=== PATIENT | female | born 1980 | race Caucasian/White ===

== ENCOUNTER → 2017-04-16 | Outpatient (CLI) | payer MEDICARE, MEDICAID ==
[~2017-04-16] MED LIST: ACYC800T PO; ALPR.5T; ARPZ20T PO; CRS350T; CYCL10TA9 PO; DCS100C; DIAZ5TAB49; DOCU-165; DULO60CA6; FLUO40CA12 PO; HYDR-2997 PO; HYDR-32; HYDR-3604; LAMO100T69; LORA2TAB; NAPR500T4 PO; PREN1TAB71; TRAM-21 PO; TRAM-42 PO; TRAM50TA2
--- NOTE | 2017-04-16 17:58 | Diagnostic Imaging Report ---
INDICATION: Pain. Three views were obtained. FINDINGS: The alignment is normal. The plafonds and talar dome are intact. The ankle mortise is symmetric. There is no fracture or dislocation. IMPRESSION: No acute fracture or dislocation. Dictated by: Dictated on workstation # [id number]
== END ==
LOC: RAD 17:18
DX: M25.572 Pain in left ankle and joints of left foot (principal)
CPT/HCPCS: 73610

== ENCOUNTER 2017-08-28 23:26 | Emergency (ER) | payer MEDICARE, MEDICAID ==
[~2017-08-28] VITALS: Ht 162.6 cm; Wt 63.5 kg
[~2017-08-28 23:26] MED LIST changes: -FLUO40CA12 PO; -NAPR500T4 PO; -TRAM-42 PO
[2017-08-28] MEDS ORDERED: FLUO40CA12 PO (23:57)
[2017-08-29] MEDS ORDERED: RX-NAPROXEN (NAPROSYN) 250 MG TAB PPK#4 PO STA (00:26)
[2017-08-29] MEDS ORDERED: RX-TRAMADOL 50 MG (ULTRAM) TAB PPK#4 PO STA (00:26)
[2017-08-29] MEDS ORDERED: TRAM-42 PO (00:30)
[2017-08-29] MEDS ORDERED: NAPR500T4 PO (00:30)
--- NOTE | 2017-08-29 00:30 | ED Lower Extremity ---
General Chief Complaint: Lower Extremity Stated Complaint: LT ANKLE INJ Nursing Triage Note: LEFT ANKLE PAIN AFTER MISSING STEP. Nursing Sepsis Screen: No Definite Risk Source: patient History of Present Illness Time seen by provider: 23:55 Initial Comments PT ARRIVES VIA POV C/O LEFT ANKLE INJURY STATES SHE WAS AT A FRIEND'S HOUSE AND MISSED THE LAST STEP AND TWISTED HER LEFT ANKLE OCCURRED APPROXIMATELY AN HOUR AGO NO OTHER INJURIES NO PARESTHESIAS OR MOTOR DEFICITS HAS HAD SPRAIN TO THIS ANKLE IN THE PAST, NO SURGERY PCP:[facility] [place] Allergies and Home Medications Allergies Coded Allergies: NKANo Known Allergies (Unverified Allergy, Mild, 03/20/06) ketorolac (Verified Allergy, Unknown, SWELLING OF THE TOUNGE. , 01/30/16) Home Medications Alprazolam 0.5 Mg Tablet, (Reported) Fluoxetine HCl 40 Mg Capsule, 40 MG PO, (Reported) Lamotrigine 100 Mg Tablet, (Reported) Naproxen 500 Mg Tablet, 500 MG PO BID, #20 Prescribed by: RELL ZEPEDA on 08/29/17 0030 Tramadol HCl 50 Mg Tablet, 50 MG PO Q4H, #20 Prescribed by: RELL ZEPEDA on 08/29/17 0030 Constitutional: no symptoms reported : No LMP: Aug 21, 2017 Control/STD Prophylaxis: IUD Musculoskeletal: see HPI Skin: no symptoms reported Psychiatric/Neurological: No Symptoms Reported Past Hdrgsmp-Zgufqr-Otwfaz Hx Patient Social History Alcohol Use: Occasionally Uses Alcohol Beverage of Choice: Beer Recreational Drug Use: Yes (+IV METH USE ) Smoking Status: Current Everyday Smoker (1 PPD) Type Used: Cigarettes 2nd Hand Smoke Exposure: Yes Recent Foreign Travel: No Contact w/Someone Who Travel: No Recent Infectious Disease Expo: No Recent Hopitalizations: No Immunizations Up To Date Tetanus Booster (TDap): Unknown Seasonal Allergies Seasonal Allergies: No Surgeries History of Surgeries: Yes (URETHRAL DILATION X 2; X 2) Surgeries: Adenoidectomy, Bladder Surgery, Section, Tonsillectomy Respiratory History of Respiratory Disorde: Yes Respiratory Disorders: Asthma Cardiovascular History of Cardiac Disorders: No Neurological History of Neurological Disord: No 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 System : No Hx 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 Disorders: No Female 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 Genitourinary History of Genitourinary Disor: No Gastrointestinal History of Gastrointestinal Di: No Musculoskeletal History of Musculoskeletal Dis: Yes (CHRONIC NECK PAIN ) Musculoskeletal Disorders: Degenerate Disk Disease Endocrine History of Endocrine Disorders: No HEENT History of HEENT Disorders: No Cancer History of Cancer: No Psychosocial History of Psychiatric Problem: Yes Behavioral Health Disorders: Anxiety, Bipolar, Schizophrenia, Depression Integumentary History of Skin or Integumenta: No Blood Transfusions History of Blood Disorders: No Physical Exam Vital Signs Vital Sign - Last 12Hours 08/28/17 23:57 Temp 98.6 Pulse 103 Resp 18 B/P (MAP) 120/73 Pulse Ox 96 O2 Delivery Room Air Capillary Refill : Less Than 3 Seconds General Appearance: WD/WN, no apparent distress, other (PT WITH RAPID MUMBLED AND SLIGHTLY SLURRED SPEECH, APPEARS TO BE UNDER THE INFLUENCE OF SOME SUBSTANCE /S) Legs: bilateral leg normal inspection Knees: bilateral knee normal inspection Ankles: right ankle normal inspection, left ankle bone tenderness, left ankle limited range of motion, left ankle pain, left ankle soft tissue tenderness, left ankle swelling, left ankle other (OVER LATERAL ASPECT OF LEFT ANKLE) Feet: left foot normal inspection Neurologic/Tendon: normal sensation, normal motor functions, normal tendon functions 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, no motor/sensory deficits, alert, oriented x 3 Skin: normal color, warm/dry Splinting and Joint Reduction : Edgard wrap: Yes Immobilizers: Step Light Walker s/m/lg Progress/Results/Core Measures Results/Orders My Orders Orders - RELL ZEPEDA DO Ankle, Left, 3 Views (08/29/17 00:01) Edgard Bandage (08/29/17 00:26) Steplite (08/29/17 00:26) Rx-Tramadol Hcl (Rx-Ultram) (08/29/17 00:26) Rx-Naproxen (Rx-Naprosyn) (08/29/17 00:26) Vital Signs/I&O Vital Sign - Last 12Hours 08/28/17 08/29/17 23:57 00:38 Temp 98.6 98.6 Pulse 103 103 Resp 18 18 B/P (MAP) 120/73 Pulse Ox 96 96 O2 Delivery Room Air Blood Pressure Mean: 89 Diagnostic Imaging Comments XRAYS LEFT ANKLE--NO ACUTE PROCESS, PENDING RADIOLOGIST REVIEW Reviewed: Reviewed by Me Departure Impression Impression: Primary Impression: Left ankle sprain Disposition: 01 HOME, SELF-CARE Condition: Stable Departure-Patient Inst. Referrals: NO,LOCAL PHYSICIAN (PCP/Family) Primary Care Physician Patient Instructions: Ankle Sprain (DC), How to Use an Elastic Bandage Add. Discharge Instructions: EDGARD WRAP AND WALKING BOOT NEEDED FOR COMFORT ICE TO AREA AT 20 MINUTE INTERVALS ELEVATE FOOT MUCH POSSIBLE FOLLOW UP WITH YOUR DR IN 1 WEEK IF NO BETTER All discharge instructions reviewed with patient and/or family. Voiced understanding. Scripts Tramadol HCl (Ultram) 50 Mg Tablet 50 MG PO Q4H, #20 TAB Prov: RELL ZEPEDA DO 08/29/17 Naproxen (Naproxen) 500 Mg Tablet 500 MG PO BID, #20 TAB Prov: RELL ZEPEDA DO 08/29/17 RELL ZEPEDA DO Aug 29, 2017 00:30
[2017-08-29 00:38] VITALS: BP 120/73
--- NOTE | 2017-08-29 07:20 | Diagnostic Imaging Report ---
INDICATION: Injury. Pain. COMPARISON: 04/16/2017 FINDINGS: 3 views of the left ankle are obtained. No acute fracture, malalignment or osseous destructive process is seen. Osseous density distal to the medial malleolus is unchanged and likely chronic. There is moderate soft tissue swelling laterally. Ankle joint space is preserved. IMPRESSION: There is moderate lateral soft tissue swelling without evidence of an acute fracture. Dictated by: Dictated on workstation # [id number]
== END 2017-08-29 00:38 | disposition home or self-care (01) ==
LOC: EDUNIT# 23:26 → ER 23:28
DX: S93.402A Sprain of unspecified ligament of left ankle, initial encounter (principal); F15.10 Other stimulant abuse, uncomplicated; F12.10 Cannabis abuse, uncomplicated; J45.909 Unspecified asthma, uncomplicated; F41.9 Anxiety disorder, unspecified; F31.9 Bipolar disorder, unspecified; F20.9 Schizophrenia, unspecified; Z87.59 Personal history of other complications of pregnancy, childbirth and the puerperium; Z90.89 Acquired absence of other organs; X50.1XXA Overexertion from prolonged static or awkward postures, initial encounter
CPT/HCPCS: 73610; 99283

== ENCOUNTER 2019-03-02 19:40 | Emergency (ER) | payer MEDICARE, MEDICAID ==
[~2019-03-02] VITALS: Ht 157.5 cm; Wt 72.6 kg
[~2019-03-02 19:40] MED LIST changes: +FLUO40CA12 PO; +NAPR-915 PO; +TRAM-42 PO
[2019-03-02 19:48] VITALS: BP 117/80
--- NOTE | 2019-03-02 19:48 | ED Lower Extremity ---
General Stated Complaint: L KNEE PAIN Source: patient, EMS Exam Limitations: no limitations History of Present Illness Date Seen by Provider: March 02, 2019 Time Seen by Provider: 19:46 Initial Comments To ER with left knee and left ankle pain. This occurred just prior to arrival when she was running from the police wearing flip-flops, slipped and fell and h as knee pain. She has been able to walk and bear weight but she states that she has been with a limp. Onset: just prior to arrival Severity: moderate Pain/Injury Location: left knee Method of Injury: fell Modifying Factors: Worse With Movement Allergies and Home Medications Allergies Coded Allergies: NKANo Known Allergies (Unverified Allergy, Mild, 03/20/06) aripiprazole (Verified Allergy, Unknown, 03/02/19) ketorolac (Verified Allergy, Unknown, SWELLING OF THE TOUNGE. , 01/30/16) Patient Home Medication List Home Medication List Reviewed: Yes Review of Systems Constitutional: see HPI EENTM: see HPI Respiratory: no symptoms reported Cardiovascular: no symptoms reported Genitourinary: no symptoms reported Musculoskeletal: see HPI Skin: no symptoms reported Psychiatric/Neurological: No Symptoms Reported Past Gucdggf-Mgkucx-Ldwahz Hx Patient Social History Alcohol Beverage of Choice: Beer Type Used: Cigarettes 2nd Hand Smoke Exposure: Yes Recent Foreign Travel: No Contact w/Someone Who Travel: No Recent Hopitalizations: No Immunizations Up To Date Tetanus Booster (TDap): Unknown Seasonal Allergies Seasonal Allergies: No Past Medical History Surgeries: Yes (URETHRAL DILATION X 2; X 2) Adenoidectomy, Bladder Surgery, Section, Tonsillectomy Respiratory: Yes Asthma Cardiac: No Neurological: No 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 Disorders: No Female 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 oz. 63.006782zw; BMI Method:Estimated General Appearance: WD/WN, no apparent distress Respiratory: no respiratory distress, no accessory muscle use Hips: bilateral hip non-tender, bilateral hip normal inspection, bilateral hip normal range of motion Legs: bilateral leg non-tender, bilateral leg normal inspection, bilateral leg normal range of motion Knees: left knee pain, left knee soft tissue tenderness, left knee swelling Ankles: left ankle pain, left ankle soft tissue tenderness, left ankle swelling Feet: bilateral foot non-tender, bilateral foot normal inspection, bilateral foot normal range of motion Neurologic/Psychiatric: alert, normal mood/affect, oriented x 3 Skin: normal color, warm/dry Progress/Results/Core Measures Results/Orders My Orders Orders - REYNALDO GIL APRN Knee, Left, 3 Views (03/02/19 19:44) Ankle, Left, 3 Views (03/02/19 19:44) Vital Signs/I&O 03/02/19 19:48 Temp 97.1 Pulse 109 Resp 18 B/P (MAP) 117/80 (92) Pulse Ox 98 O2 Delivery Room Air Departure Communication (Admissions) 1954-shockingly, now that the police have released her from custody she states she like to sign out AGAINST MEDICAL ADVICE. Impression Primary Impression: Knee pain Qualified Codes: M25.562 - Pain in left knee Additional Impression: Under investigation by police Disposition: 07 AGAINST MEDICAL ADVICE Condition: Against Medical Advice Departure-Patient Inst. Referrals: NO,LOCAL PHYSICIAN (PCP/Family) Primary Care Physician REYNALDO GIL APRN March 02, 2019 19:47
== END 2019-03-02 19:58 | disposition left against medical advice (07) ==
LOC: EDUNIT# 19:40 → ER 19:42
DX: M25.562 Pain in left knee (principal); J45.909 Unspecified asthma, uncomplicated; F41.9 Anxiety disorder, unspecified; F31.9 Bipolar disorder, unspecified; F20.9 Schizophrenia, unspecified; Z97.5 Presence of (intrauterine) contraceptive device; Z88.8 Allergy status to other drugs, medicaments and biological substances; Z88.4 Allergy status to anesthetic agent; Z77.22 Contact with and (suspected) exposure to environmental tobacco smoke (acute) (chronic); Z98.890 Other specified postprocedural states; Z90.89 Acquired absence of other organs; Z65.3 Problems related to other legal circumstances; W01.0XXA Fall on same level from slipping, tripping and stumbling without subsequent striking against object, initial encounter
CPT/HCPCS: 99283

== ENCOUNTER → 2019-10-06 | Outpatient (CLI) | payer MEDICARE, MEDICAID ==
--- NOTE | 2019-10-06 14:09 | Diagnostic Imaging Report ---
INDICATION: patient, survey. TECHNIQUE: Multiple real-time grayscale images were obtained over the gravid uterus. COMPARISON: None during this . FINDINGS: A single live intrauterine fetus is seen measuring 33 weeks 2 days in size by composite measurements. The fetus is in cephalic presentation. Amniotic fluid index is 12.9 cm. The placenta is grade 1 and posterior. There is no evidence of previa. heart rate is 150 bpm. Maternal adnexa could not be visualized. survey demonstrates a normal appearance of the kidneys and bladder as well as the stomach and four-chamber heart view. Intracranial ventricles are normal in size. Three-vessel cord and cord insertion appear unremarkable. spine was not well seen due to position. Biometrical measurements are as follows: Biparietal 8.14 cm, age 32 weeks 5 days. Head circumference 30.24 cm, age 33 weeks 5 days. Abdominal circumference 30.55 cm, age 34 weeks 4 days. Femur length 6.15 cm, age 32 weeks 0 days. Sonographic estimate age: 33 weeks 2 days. Sonographic estimated date of delivery: 11/22/2019. Estimated Weight: 2213 gm (+/- 323 gm). LMP percentile: 96%. heart rate: 150 beats per minute. number: 1 of 1. IMPRESSION: Single live intrauterine fetus measuring 33 weeks 2 days in size. There was no detectable abnormality, although spine was not well seen. Consider follow-up if clinically warranted. Dictated by: Dictated on workstation # [id number]
== END ==
LOC: RAD 12:49
PROVIDERS: ATTEND Obstetrics & Gynecology
DX: Z36.89 Encounter for other specified antenatal screening (principal); Z3A.33 33 weeks gestation of pregnancy
CPT/HCPCS: 76805

== ENCOUNTER 2019-10-14 15:11 | Emergency (ER) | payer MEDICARE, MEDICAID ==
[~2019-10-14] VITALS: Ht 157.5 cm; Wt 85.7 kg
[2019-10-14 15:48] LABS: BILIRUBIN,URINE NEGATIVE (NEGATIVE); CLARITY,URINE CLOUDY; COLOR,URINE YELLOW; GLUCOSE, URINE (UA) NEGATIVE (NEGATIVE); KETONES,URINE NEGATIVE (NEGATIVE); LEUKOCYTE ESTERASE ,URINE NEGATIVE (NEGATIVE); NITRITE,URINE NEGATIVE (NEGATIVE); PH,URINE 6.5 (5-9); PROTEIN,URINE NEGATIVE (NEGATIVE)
--- NOTE | 2019-10-14 15:58 | ED General ---
General Chief Complaint: Lower Extremity Stated Complaint: SWOLLEN ANKLES/FEET, HEADACHE Nursing Triage Note: PT AMBULATE TO TRIAGE WITH C/O BILAT ANKLE SWELLING STARTING APPROX 3 DAYS AGO. PT REPORTS SHE IS AND HER DUE DATE IS 11/22/19. Nursing Sepsis Screen: No Definite Risk Source of Information: Patient Exam Limitations: No Limitations History of Present Illness Date Seen by Provider: Oct 14, 2019 Time Seen by Provider: 15:58 Initial Comments 39-year-old female patient presents with complaints of bilateral ankle swelling beginning 2-3 days ago. Patient does report being on her feet more the last couple of days. Swelling is worse in the evenings. Patient reports being seen by Dr. Omalley one to 2 weeks ago and is scheduled for follow-up on October 19. She does report a slight headache for 1-2 days. Denies dizziness, shortness of air, chest pain, palpitations. Timing/Duration: 2-3 Days Modifying Factors: worse with Other (swelling is worse in the evening) Allergies and Home Medications Allergies Coded Allergies: NKANo Known Allergies (Unverified Allergy, Mild, 03/20/06) aripiprazole (Verified Allergy, Unknown, 03/02/19) ketorolac (Verified Allergy, Unknown, SWELLING OF THE TOUNGE. , 01/30/16) Home Medications Vit W-Ca,Fe,FA(<1 mg) 1 Each Tablet, 1 EACH PO DAILY, (Reported) Patient Home Medication List Home Medication List Reviewed: Yes Review of Systems Review of Systems Constitutional: No chills, No diaphoresis, No dizziness, No fever, No malaise, No weakness EENTM: No ear pain, No blurred vision, No double vision, No eye pain, No vision loss, No hoarseness, No mouth pain, No nose congestion, No throat pain Respiratory: No cough, No dyspnea on exertion, No orthopnea, No phlegm, No short of breath, No wheezing Cardiovascular: No chest pain; edema; No palpitations, No syncope Gastrointestinal: No abdominal pain, No constipation, No diarrhea, No nausea, No vomiting Genitourinary: No decreased output, No discharge, No dysuria, No frequency, No hematuria, No pain, No other (denies vaginal bleeding) : Yes Expected Date of Delivery: Nov 22, 2019 Musculoskeletal: no symptoms reported Skin: no symptoms reported Psychiatric/Neurological: Headache; Denies Numbness, Denies Paresthesia, Denies Seizure, Denies Tingling, Denies Weakness Hematologic/Lymphatic: No Symptoms Reported All Other Systems Reviewed Negative Unless Noted: Yes (Negative excepted noted.) Past Mhlzcub-Cwzjge-Mltzpu Hx Past Med/Social Hx: Reviewed Nursing Past Med/Soc Hx, Reviewed and Corrections made Patient Social History Alcohol Use: Regular Use Number of Drinks Today: AA Alcohol Beverage of Choice: Beer Recreational Drug Use: No Smoking Status: Current Everyday Smoker Type Used: Cigarettes 2nd Hand Smoke Exposure: Yes Recent Foreign Travel: No Contact w/Someone Who Travel: No Recent Infectious Disease Expo: No Recent Hopitalizations: No Physical Abuse: No Sexual Abuse: No Mistreated: No Fear: No Immunizations Up To Date Tetanus Booster (TDap): Unknown Seasonal Allergies Seasonal Allergies: No Past Medical History Surgeries: Yes (URETHRAL DILATION X 2; X 2) Adenoidectomy, Bladder Surgery, Section, Tonsillectomy Respiratory: Yes Asthma Cardiac: No Neurological: No : Yes Expected Date of Delivery: Nov 22, 2019 Hx : 2 Hx Para: 1 Hx Total # of Abortions (Sp): 0 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 Disorders: No Female 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 FISH[employer] History: IUD Genitourinary: No Gastrointestinal: No Musculoskeletal: Yes (CHRONIC NECK PAIN ) Degenerate Disk Disease Endocrine: No HEENT: No Cancer: No Psychosocial: Yes Anxiety, Bipolar, Schizophrenia, Depression Integumentary: No Blood Disorders: No Family Medical History Reviewed Nursing Family Hx No Pertinent Family Hx Physical Exam Vital Signs Vital Signs - First Documented 10/14/19 10/14/19 15:23 17:19 Temp 37.1 Pulse 98 Resp 18 B/P (MAP) 115/69 (84) Pulse Ox 99 O2 Delivery Room Air Capillary Refill : Less Than 3 Seconds Height, Weight, BMI Height: 5'2.00" Weight: 160lbs. oz. 72.307577gj; 34.00 BMI Method:Stated General Appearance: No Apparent Distress, WD/WN HEENT: PERRL/EOMI, Pharynx Normal Neck: Normal Inspection, Supple Respiratory: Lungs Clear, Normal Breath Sounds, No Accessory Muscle Use, No Respiratory Distress Cardiovascular: Regular Rate, Rhythm, No Gallop, No JVD, No Murmur, Normal Peripheral Pulses Gastrointestinal: Normal Bowel Sounds, Non Tender, Soft; No Distended; Other (uteromegaly consistent with a 34 wk fundus) Back: Normal Inspection, No CVA Tenderness Extremity: Normal Capillary Refill, No Calf Tenderness, Pedal Edema (2+ pedal edema) Neurologic/Psychiatric: Alert, Oriented x3, Normal Mood/Affect Skin: Normal Color, Warm/Dry Progress/Results/Core Measures Suspected Sepsis Recent Fever Within 48 Hours: No Infection Criteria Present: None New/Unexplained Altered Menta: No Sepsis Screen: No Definite Risk SIRS Temperature: Pulse: 98 Respiratory Rate: 18 Blood Pressure 115 /69 Mean: 84 Results/Orders Lab Results Laboratory Tests Test 10/14/19 15:40 Range/Units Urine Color YELLOW Urine Clarity CLOUDY Urine pH 6.5 5-9 Urine Specific [place] 1.025 H 1.016-1.022 Urine Protein NEGATIVE NEGATIVE Urine Glucose (UA) NEGATIVE NEGATIVE Urine Ketones NEGATIVE NEGATIVE Urine Nitrite NEGATIVE NEGATIVE Urine Bilirubin NEGATIVE NEGATIVE Urine Urobilinogen 0.2 < = 1.0 MG/DL Urine Leukocyte Esterase NEGATIVE NEGATIVE Urine RBC (Auto) NEGATIVE NEGATIVE Urine RBC NONE /HPF Urine WBC 2-5 /HPF Urine Squamous Epithelial Cells 5-10 /HPF Urine Crystals NONE /LPF Urine Bacteria LARGE H /HPF Urine Casts NONE /LPF Urine Mucus NEGATIVE /LPF Urine Culture Indicated YES My Orders Orders - BRUCE HALEY Heart Tones (10/14/19 15:41) Ua Culture If Indicated (10/14/19 15:41) Urine Culture (10/14/19 15:40) Cephalexin Capsule (Keflex Capsule) (10/14/19 17:15) Vital Signs/I&O 10/14/19 10/14/19 15:23 17:19 Temp 37.1 Pulse 98 71 Resp 18 18 B/P (MAP) 115/69 (84) 122/68 Pulse Ox 99 O2 Delivery Room Air Room Air Capillary Refill : Less Than 3 Seconds Blood Pressure Mean: 84 Departure Communication (Admissions) Patient seen and evaluated. Urinalysis obtained. heart tones 163 bpm. patient case discussed with Dr. Omalley with recommendations for patient to go upstairs to women's services for monitoring. ua findings and recommendations by dr. omalley d/w the patient. patient verbalizes understanding and agrees with the treatment plan. patient case d/w dr. sanders, he agrees with the plan of care. Impression Primary Impression: UTI (urinary tract infection) in in third trimester Additional Impressions: Pedal edema 34 weeks gestation of Disposition: HOME, SELF-CARE Condition: Improved Departure-Patient Inst. Decision time for Depature: 17:01 Referrals: CLAIRE OMALLEY,LOCAL PHYSICIAN (PCP) Primary Care Physician Patient Instructions: Preeclampsia (DC), Pitfalls After Age 35, Urinary Tract Infection, Child (DC) Add. Discharge Instructions: All discharge instructions reviewed with patient and/or family. Voiced understanding. Go to [facility]'s Services on 3rd floor for outpatient monitoring when you leave the emergency department. Take medications as prescribed. Tylenol dghr-hbd-efwrezq as directed for headache or pain. Drink plenty of fluids. Elevate the lower extremities above the level of the heart. Follow-up with Dr. Omalley this week as scheduled. Contact her office Wednesday morning to notify them of your emergency department visit. Return to the emergency department immediately for worsened symptoms or any other concerns. I've given him information on preeclampsia to review for educational purposes. BRUCE HALEY Oct 14, 2019 15:58
[2019-10-14 16:12] LABS: BACTERIA,URINE LARGE /HPF
[2019-10-14] MEDS ORDERED: CEFD300C3 PO (17:09)
[2019-10-14] MEDS ORDERED: CEPHALEXIN 250 MG (KEFLEX) CAP PO ONE (17:15)
[2019-10-14 17:19] VITALS: BP 122/68
--- NOTE | 2019-10-14 17:19 | NUR ---
MEDICATION NOT GIVEN. ORDER HAD NOT CROSSED OVER PRIOR TO PT DISCHARGE.
[2019-10-14] MEDS ORDERED: PREN1TAB79 PO (18:27)
== END 2019-10-14 17:19 | disposition home or self-care (01) ==
LOC: EDUNIT# 15:11 → ER 15:13
DX: O23.43 Unspecified infection of urinary tract in pregnancy, third trimester (principal); O26.893 Other specified pregnancy related conditions, third trimester; R60.0 Localized edema; O99.513 Diseases of the respiratory system complicating pregnancy, third trimester; J45.909 Unspecified asthma, uncomplicated; O99.343 Other mental disorders complicating pregnancy, third trimester; F41.9 Anxiety disorder, unspecified; F31.9 Bipolar disorder, unspecified; F20.9 Schizophrenia, unspecified; O99.333 Smoking (tobacco) complicating pregnancy, third trimester; F17.210 Nicotine dependence, cigarettes, uncomplicated; Z3A.34 34 weeks gestation of pregnancy; Z88.6 Allergy status to analgesic agent; Z88.8 Allergy status to other drugs, medicaments and biological substances; Z90.89 Acquired absence of other organs
CPT/HCPCS: 81000; 87088; 99283

== ENCOUNTER 2019-10-14 17:20 | Outpatient (CLI) | payer MEDICARE, MEDICAID ==
[~2019-10-14] VITALS: Ht 157.5 cm; Wt 88.6 kg
[~2019-10-14 17:20] MED LIST changes: +CEFD300C3 PO
--- NOTE | 2019-10-14 17:28 | NUR ---
ELOY HALEY presented to unit via ambulation from ED, accompanied by daughter, with c/o SWOLLEN FEET. ELOY HALEY weighed, gowned, voided, and to bed. EFHM and TOCO applied, VS taken. ELOY HALEY oriented to bed controls, call light, TV, heat, and A/C controls.
--- NOTE | 2019-10-14 18:00 | NUR ---
2+ PITTING EDEMA OF LEGS AND FEET. DTR'S WNL. C/O HEADACHE BUT STATES HAS A HX OF HEADACHES. ASKING FOR SOMETHING STRONGER FOR HER HEADACHE THAN TYLENOL. DENIES VISUAL DISTURBANCES, EPIGASTRIC PAIN. NO CTXS NOTED. VERY ACTIVE FETUS WITH + ACCELS. URINE TAKEN IN THE ED RESULTS WITH NO PROTEIN.
--- NOTE | 2019-10-14 18:19 | NUR ---
EFM OFF. UP TO GET DRESSED.
[2019-10-14 18:23] VITALS: BP 116/67
[2019-10-14] MEDS ORDERED: PREN1TAB79 PO (18:27)
--- NOTE | 2019-10-14 18:30 | NUR ---
ENCOURAGED P.O. FLUIDS AT HOME. STATES SHE DOESN'T LIKE WATER BUT WILL TRY TO DRINK MORE.
--- NOTE | 2019-10-14 18:34 | NUR ---
DISCHARGE INSTRUCTIONS REVIEWED WITH COPY TO PT. STATES UNDERSTANDING OF ALL INSTRUCTIONS AND NEED TO F/U SCHEDULED AND NEEDED. DISMISSED AMB FROM [facility] WITH DAUGHTER IN STABLE CONDITION.
--- NOTE | 2019-10-16 08:36 | Physician Query-Final Dx ---
RYLAN SALVADOR 10/16/19 0836: Clinic Account Progress/Dx Physician Query: Please give diagnosis Please give # weeks gestation Date of Service Oct 14, 2019 at 17:20 CLAIRE DESAI DO 10/16/19 0910: Clinic Account Progress/Dx DIAGNOSIS: Diagnosis 35 WEEKS IUP UTI RYLAN SALVADOR Oct 16, 2019 08:36 CLAIRE DESAI DO Oct 16, 2019 09:10
== END 2019-10-14 18:34 | disposition home or self-care (01) ==
LOC: WSo 17:20 → LDRP 17:22 → WSo 18:34
PROVIDERS: ATTEND Obstetrics & Gynecology
DX: O23.43 Unspecified infection of urinary tract in pregnancy, third trimester (principal); Z3A.35 35 weeks gestation of pregnancy
CPT/HCPCS: 99212

== ENCOUNTER → 2019-11-01 | Outpatient (CLI) | payer MEDICARE, MEDICAID ==
[~2019-11-01] MED LIST changes: +PREN1TAB79 PO
== END | disposition home or self-care (01) ==
LOC: PREOP 08:16
PROVIDERS: ATTEND Obstetrics & Gynecology
DX: Z01.818 Encounter for other preprocedural examination (principal)

== ENCOUNTER 2019-11-02 07:30 | Inpatient (IN) | payer MEDICARE, MEDICAID ==
[~2019-11-02] VITALS: Ht 157.5 cm; Wt 93.0 kg
[2019-11-15] VITALS (9 sets, daily range): BP systolic 102–119; BP diastolic 64–72
--- NOTE | 2019-11-15 10:30 | NUR ---
Arrived to unit for repeat . Wt obtained and to room 315. Gowned and urine sample obtained. To bed and oriented to room, call light, surroundings and plan of care. monitors on.
[2019-11-15] MEDS ORDERED: ceFAZolin 2 GM/50 ML NS 50 ML IV ONE (10:45)
[2019-11-15] MEDS ORDERED: FAMOTIDINE 20MG/2ML IV (PEPCID) IVP ONE (10:45)
[2019-11-15] MEDS ORDERED: METOCLOPRAMIDE INJ 10 MG/2 ML (REGLAN) IV ONE (10:45)
[2019-11-15] MEDS ORDERED: CATHETER FLUSH 10 ML SYR IV PRN (10:45)
[2019-11-15] MEDS ORDERED: CITRIC ACID/SOB CIT (BICITRA) 30 ML UDC PO ONE (10:45)
[2019-11-15 11:32] LABS: BASOPHILS % (AUTO) 0 % (0-10); EOSINOPHILS # (AUTO) 0.2 10^3/uL (0.0-0.3); EOSINOPHILS % (AUTO) 1 % (0-10); HEMATOCRIT 35 % (35-52); HEMOGLOBIN 11.8 G/DL (11.5-16.0); LYMPHOCYTES # (AUTO) 1.8 X 10^3 (1.0-4.0); LYMPHOCYTES % (AUTO) 10 % (12-44); MEAN CORPUSCULAR HEMOGLOBIN 31 PG (25-34); MEAN CORPUSCULAR HGB CONC 34 G/DL (32-36); MEAN CORPUSCULAR VOLUME 91 FL (80-99); MEAN PLATELET VOLUME 10.1 FL (7.4-10.4); MONOCYTES # (AUTO) 1.2 X 10^3 (0.0-1.0); MONOCYTES % (AUTO) 6 % (0-12); NEUTROPHILS # (AUTO) 15.6 X 10^3 (1.8-7.8); NEUTROPHILS % (AUTO) 83 % (42-75); PLATELET COUNT 340 10^3/uL (130-400); WHITE BLOOD COUNT 18.8 10^3/uL (4.3-11.0)
[2019-11-15] MEDS ORDERED: LACTATED RINGERS 1,000 ML IV ONE ×2 (11:45→12:00)
[2019-11-15] MEDS ORDERED: OXYTOCIN PRE-MIX DRIP 1,000 ML IV ONE (11:51)
--- NOTE | 2019-11-15 12:01 | NUR ---
Dr Omalley to bedside and reviewed plan of care with pt.
[2019-11-15] MEDS ORDERED: fentaNYL INJECTION 100 MCG/2 ML AMP ONE (12:11)
[2019-11-15] MEDS ORDERED: TETANUS,DIPTH,PERTUSS P/F (BOOSTRIX) 0.5 ML VIAL IM SCH (12:15)
[2019-11-15] MEDS ORDERED: MEASLES,MUMPS,RUBELLA 1 EA INJ SC SCH (12:15)
[2019-11-15] MEDS ORDERED: ONDANSETRON 4 MG/2 ML (SDV) Z0FRAN IVP PRN (12:15)
--- NOTE | 2019-11-15 12:18 | NUR ---
monitors off and pt ambulates self to OR suite accompanied by OR staff.
--- NOTE | 2019-11-15 12:21 | History & Physical-OB ---
OB - Chief Complaint & HPI Date/Time Date of Admission: Date of Admission: Nov 15, 2019 at 10:30 Date seen by a Provider: Nov 15, 2019 Time Seen by a Provider: 12:05 Chief Complaint/History OB-Reason for Admission/Chief: Section Hx : 2 Hx Para: 1 Expected Date of Delivery: Nov 22, 2019 Gestational Age in Weeks: 39 Indication for : desires repeat Admission Nurse Assessment Rev: Yes Allergies and Home Medications Allergies Coded Allergies: aripiprazole (Verified Allergy, Severe, ANAPHYLAXIS, 11/08/19) ketorolac (Verified Allergy, Severe, SWELLING OF THE TOUNGE. , 11/08/19) latex (Verified Allergy, Mild, RASH, 11/08/19) Home Medications Vit W-Ca,Fe,FA(<1 mg) 1 Each Tablet, 1 EACH PO DAILY, (Reported) Patient Home Medication List Home Medication List Reviewed: Yes OB - History Hx of Present Care: Yes Ultrasounds: Normal mid trimester US Obstetrical Complications: Other (Late care, Insufficent) Medical Complications: None Delivery History Adverse Rxn to Tranfusion: No (N/A) Patient Past Medical History n/a Social History/Family History HIV/AIDS: No Recent Infectious Disease Expo: No Sexually Transmitted Disease: No Alcohol Use: Denies Use Recreational Drug Use: No 2nd Hand Smoke Exposure: Yes Immunizations Tetanus Booster (TDap): Unknown Date of Influenza Vaccine: Oct 18, 2019 OB - Admission Exam Physical Exam HEENT: NCAT Heart: Rhythm Normal Lungs: Clear Abdomen: Gravid Extremities: Normal Reflexes: Normal Heart Rate: 130's Accelerations: Accelerations Present Decelerations: No Decelerations Short Term Variability: Present Senior Living Variability: Average (6-25) Contractions on Admission: >10 Minutes Apart Labs Laboratory Tests Test 11/15/19 11:15 Range/Units White Blood Count 18.8 H 4.3-11.0 10^3/uL Red Blood Count 3.80 L 4.35-5.85 10^6/uL Hemoglobin 11.8 11.5-16.0 G/DL Hematocrit 35 35-52 % Mean Corpuscular Volume 91 80-99 FL Mean Corpuscular Hemoglobin 31 25-34 PG Mean Corpuscular Hemoglobin Concent 34 32-36 G/DL Red Cell Distribution Width 13.0 10.0-14.5 % Platelet Count 340 130-400 10^3/uL Mean Platelet Volume 10.1 7.4-10.4 FL Neutrophils (%) (Auto) 83 H 42-75 % Lymphocytes (%) (Auto) 10 L 12-44 % Monocytes (%) (Auto) 6 0-12 % Eosinophils (%) (Auto) 1 0-10 % Basophils (%) (Auto) 0 0-10 % Neutrophils # (Auto) 15.6 H 1.8-7.8 X 10^3 Lymphocytes # (Auto) 1.8 1.0-4.0 X 10^3 Monocytes # (Auto) 1.2 H 0.0-1.0 X 10^3 Eosinophils # (Auto) 0.2 0.0-0.3 10^3/uL Basophils # (Auto) 0.0 0.0-0.1 10^3/uL OB - Assessment/Plan/Diagnosis Assessment Assessment: section Admission Dx 39 yo @ 39 weeks Previous AMA Late care Admission Status: Inpatient Order (span 2 midnights) Reason for Inpatient Admission: Repeat at 39 weeks Plan Plan: Section CLAIRE DESAI DO Nov 15, 2019 12:21
[2019-11-15] MEDS ORDERED: DOCU-244 PO (12:23)
[2019-11-15] MEDS ORDERED: HYDR-34 PO (12:23)
[2019-11-15] MEDS ORDERED: IBUP-844 PO (12:23)
--- NOTE | 2019-11-15 12:24 | Discharge Inst-Women's Service ---
Discharge Inst-Women's Serv Depart Medication/Instructions New, Converted or Re-Newed RX: RX on Chart Problems Reviewed?: Yes Consults/Follow Up Additional Follow Up: Yes Orders/Referrals Dr. Omalley in 7-10 days and in 6 weeks Activity Activity: Activity as Tolerated Driving Instructions: No Driving for 1 Week NO SMOKING: NO SMOKING Nothing Inside Vagina: No Douching, No [place], No Tampons Diet Discharge Diet: No Restrictions Symptoms to Report to : Bleeding Excessive, Pain Increased, Fever Over 101 Degrees F, Vaginal Bleeding Increase, Questions/Concerns For Any Problems or Questions: Contact Your Physician Skin/Wound Care Infection Signs and Symptoms: Increased Redness, Foul Odor of Wound, Increased Drainage, Skin Itchy or Has a Rash, Increased Swelling, Temperature Above 101 F Operative Area Clean and Dry: Keep Incision Clean/Dry Stitches/Noé/Dermabond: Dermabond, Care of Stitches Bathing Instructions: CLAIRE Hills DO Nov 15, 2019 12:24
[2019-11-15] MEDS ORDERED: LIDOCAINE PF 2% 5 ML (XYLOCAINE) VIAL ONE (12:38)
[2019-11-15] MEDS ORDERED: ONDANSETRON 4 MG/2 ML (SDV) Z0FRAN ONE (12:38)
[2019-11-15] MEDS: OXYTOCIN PRE-MIX DRIP 500 ML IV SCH ×2 (12:53→13:20)
[2019-11-15] MEDS ORDERED: BUPIVACAINE 0.5% 30 ML (SENSORCAINE) VIAL ONE (13:04)
[2019-11-15] MEDS ORDERED: DEXAMETHASONE 10 MG/ML (DECADRON) 1 ML VIAL ONE (13:17)
[2019-11-15] MEDS ORDERED: diphenhydrAMINE 50 MG/ML INJ (BENADRYL) IV PRN (13:30)
[2019-11-15] MEDS ORDERED: NALOXONE 0.4 MG/ML 1 ML (NARCAN) VIAL IV PRN (13:30)
[2019-11-15] MEDS ORDERED: ONDANSETRON 4 MG/2 ML (SDV) Z0FRAN IV PRN (13:30)
[2019-11-15] MEDS ORDERED: diphenhydrAMINE 50 MG/ML INJ (BENADRYL) ONE (13:49)
--- NOTE | 2019-11-15 14:35 | NUR ---
Arrived to room on bed. Oriented to room, call light and surroundings. Plan of care reviewed. pt denied questions.
--- NOTE | 2019-11-15 14:45 | NUR ---
Cold tray to bedside for pt.
--- NOTE | 2019-11-15 15:03 | NUR ---
pt requests more food. second cold tray to bedside. prepared foods team leader reviewed with pt and family member at bedside. pt verbalized understanding. pt asks if 7 yo daughter may stay overnight and rn instructed pt that 1 person may stay but they must be over 12 yo. mother voiced understanding.
[2019-11-15] MEDS: HYDROcodone/APAP 7.5 MG/325 MG (LORTAB, LORCET PLUS) TABLET PO PRN ×2 (15:30→22:52)
[2019-11-15] MEDS: ENOXAPARIN 40 MG/0.4 ML (LOVENOX) SYR SQ SCH (15:30)
[2019-11-15] MEDS: HYDROmorphone 2 MG/ML VIAL (DILAUDID) IV PRN ×2 (16:57→20:25)
--- NOTE | 2019-11-15 17:45 | NUR ---
PT UP TO THE BATHROOM, STEADY ON HER FEET. + VOID, + PERICARE. PT BACK TO BED. ICE AND SPITE PROVIDED PER REQUEST. NO FURTHER NEEDS VOICED. CALL LIGHT WITHIN REACH.
[2019-11-15] MEDS: IBUPROFEN 600 MG (MOTRIN) TAB PO SCH (18:52)
--- NOTE | 2019-11-15 20:11 | OPERATIVE REPORT ---
DATE OF SERVICE: PREOPERATIVE DIAGNOSES: 1. A 39-year-old G2, P1, at 39 weeks' gestation. 2. Previous section. 3. Advanced maternal age. 4. Late care. POSTOPERATIVE DIAGNOSES: 1. A 39-year-old G2, P1, at 39 weeks' gestation. 2. Previous section. 3. Advanced maternal age. 4. Late care. PROCEDURE: Repeat low transverse section. SURGEON: Rosalio Omalley DO MEDICATION CARE MANAGER: Modesto Villa MS3 ANESTHESIA: Spinal. ESTIMATED BLOOD LOSS: 800 mL. URINE OUTPUT: 100 mL clear at the end of the procedure. FLUIDS: 1000 mL of lactated Ringer's solution. FINDINGS: A live male weighing 7 pounds 13 ounces, Apgars of 8 and 9. Grossly normal appearing uterus, bilateral fallopian tubes and ovaries. SPECIMEN SENT: Placenta. INDICATIONS FOR PROCEDURE: This 39-year-old female is a patient who sought care in my office. It was later entry into care approximately 20 to 30 weeks upon taking over her care. We had discussed and elected to proceed with repeat . Risks of this have been discussed with the patient in detail in the office. After all of her questions were answered in the preoperative area and consent was obtained, the patient was taken to the operating room. OPERATIVE REPORT IN DETAIL: Once in the operating room, spinal anesthesia was found to be adequate, placed in supine position with leftward tilt, prepped and draped in normal sterile fashion. Timeout was performed and anesthesia was tested. I then make a Pfannenstiel skin incision through the previously existing scar using knife and carried down to underlying fascia using Bovie cautery. Superior aspect of fascial incision was then grasped with Aamir clamps, tented up and dissected off the underlying rectus muscles. The inferior aspect of the fascial incision was then grasped with Aamir clamps, tented up and dissected off the underlying rectus muscles. Rectus muscles were then dissected down the midline using Horn scissors, which exposed the peritoneum, which I entered bluntly and extended using blunt traction. I identified the lower uterine segment, which was found to be thinned out. I placed an Federico ring retractor within the peritoneal incision, which offers excellent lateral sidewall retraction. I made a low transverse incision to the vesicouterine peritoneum and bluntly dissected off the lower uterine segment, creating a bladder flap. I then proceed with myotomy until membranes were visualized, at which point I extended the uterine incision laterally and superiorly using bandage scissors. Amniotomy was then performed using an Allis clamp. Clear fluid was noted. Infant was found in the left transverse presentation. The 's head was brought down to the incision where it is difficult to deliver due to lack of pressure and the presentation of the infant. I then placed a Kiwi vacuum extractor down the flexion point of the mid sagittal suture. I applied 500 mmHg pressure by applying to the hand pump device and with gentle extension, I am able to deliver the 's head through the incision where the nares and oropharynx were bulb suctioned. Anterior and posterior shoulders were delivered. was then brought to the operative field where the cord was doubly clamped and cut and infant was handed off to waiting nurses in attendance. Cord blood was collected. A 3-vessel cord with intact placenta was delivered spontaneously thereafter. IV Pitocin was initiated to facilitate uterine contraction. Uterine fundus confirmed by manual massage. The uterus was exteriorized and cleared of all endometrial clots and debris. I then proceeded with closing the uterine incision using 0 Vicryl suture in running locked fashion. I placed a second layer of imbricating 0 Monocryl. Excellent hemostasis was noted after doing this. I then placed the uterus back within the pelvis and copiously irrigated the pelvis using normal saline. Once again, there was no active bleeding noted from any of my dissection planes. I then placed Interceed antiadhesive over my low transverse incision and removed the Federico ring retractor. I then closed peritoneum using 3-0 Vicryl suture in running fashion. The rectus muscle reapproximated using 3-0 Vicryl suture in interrupted fashion. The fascia was reapproximated using 0 Vicryl suture in running fashion. Subcutaneous tissue was reapproximated using 3-0 plain interrupted subcutaneous stitch and skin reapproximated using 4-0 Monocryl in a running subcuticular. Dermabond was applied to incision and sterile dressing with adhesive white tape. The patient tolerated the procedure well and sent to recovery area in stable condition. Lap and sponge counts were correct at the end of the procedure. Instrument counts correct as well. Two grams of Ancef were given preoperatively for infection prophylaxis. Job ID: [id number] DocumentID: [id number] Dictated Date: 11/15/2019 13:27:14 Pastry Baker Date: 11/15/2019 20:11:38 Dictated By: DO FREDI DAMON
[2019-11-15] MEDS: DOCUSATE SODIUM 100 MG (COLACE) CAP PO SCH (20:24)
[2019-11-15] MEDS: CATHETER FLUSH 10 ML SYR IV SCH ×2 (20:25→23:23)
[2019-11-16 00:56] VITALS: BP 106/64
[2019-11-16] MEDS: IBUPROFEN 600 MG (MOTRIN) TAB PO SCH ×5 (00:56→23:14)
[2019-11-16] MEDS: HYDROcodone/APAP 7.5 MG/325 MG (LORTAB, LORCET PLUS) TABLET PO PRN ×4 (03:56→23:14)
[2019-11-16 03:57] VITALS: BP 100/62
[2019-11-16 06:26] LABS: BASOPHILS % (AUTO) 0 % (0-10); EOSINOPHILS % (AUTO) 0 % (0-10); HEMATOCRIT 27 % (35-52); HEMOGLOBIN 9.3 G/DL (11.5-16.0); LYMPHOCYTES # (AUTO) 1.7 X 10^3 (1.0-4.0); LYMPHOCYTES % (AUTO) 8 % (12-44); MEAN CORPUSCULAR HEMOGLOBIN 32 PG (25-34); MEAN CORPUSCULAR HGB CONC 34 G/DL (32-36); MEAN CORPUSCULAR VOLUME 93 FL (80-99); MEAN PLATELET VOLUME 10.6 FL (7.4-10.4); MONOCYTES # (AUTO) 1.5 X 10^3 (0.0-1.0); MONOCYTES % (AUTO) 7 % (0-12); NEUTROPHILS # (AUTO) 19.2 X 10^3 (1.8-7.8); NEUTROPHILS % (AUTO) 86 % (42-75); PLATELET COUNT 304 10^3/uL (130-400); RED CELL DISTRIBUTION WIDTH 12.7 % (10.0-14.5); WHITE BLOOD COUNT 22.4 10^3/uL (4.3-11.0)
--- NOTE | 2019-11-16 08:09 | Postpartum Progress Note ---
Note Note Day # 1 Subjective: Patient is without complaints. Ambulating, voiding. Tolerating a regular diet without nausea or vomiting. Normal lochia. Pain is well controlled with oral pain medications. Objective: Physical Exam: General - Alert and oriented, no apparent distress Abdomen - Soft, appropriately tender to palpation, non-distended, fundus firm at umbilicus Extremities - no edema, negative Jose Martin's bilaterally Incision- c/d/i Assessment: POD 1 RLTCS Acute blood loss anemia Plan: Routine care. Encourage breast feeding. Encourage ambulation. Ferrous sulfate supplementation. Plan for discharge tomorrow Vitals - Labs Vital Signs - I&O Vital Signs Date Time Temp Pulse Resp B/P (MAP) Pulse Ox O2 Delivery O2 Flow Rate FiO2 11/16/19 03:57 37.0 89 18 100/62 (75) 96 Room Air 11/16/19 00:56 36.8 105 18 106/64 (78) 96 Room Air 11/15/19 20:25 36.8 105 18 102/64 (77) 95 Room Air 11/15/19 16:56 94 Room Air 11/15/19 15:15 36.7 95 18 119/71 (87) 100 Room Air 11/15/19 14:30 36.6 15 111/71 (84) 100 Room Air 11/15/19 14:25 Room Air 11/15/19 14:15 36.9 14 111/67 (82) 99 Room Air 11/15/19 14:10 Room Air 11/15/19 14:00 36.6 14 103/67 (79) 100 Room Air 11/15/19 13:55 Room Air 11/15/19 13:49 17 108/64 (79) 99 Room Air 11/15/19 13:41 36.3 19 106/64 (78) 99 Room Air 11/15/19 13:40 Room Air 11/15/19 12:43 36.3 100 18 97 Room Air 11/15/19 10:50 36.3 100 18 113/72 (86) 97 Room Air I & O 11/16/19 07:00 Intake Total 3740 ml Output Total 275 ml Balance 3465 ml Labs Laboratory Tests 11/15/19 11:15: White Blood Count 18.8H, Red Blood Count 3.80L, Hemoglobin 11.8, Hematocrit 35, Mean Corpuscular Volume 91, Mean Corpuscular Hemoglobin 31, Mean Corpuscular Hemoglobin Concent 34, Red Cell Distribution Width 13.0, Platelet Count 340, Mean Platelet Volume 10.1, Neutrophils (%) (Auto) 83H, Lymphocytes (%) (Auto) 10L, Monocytes (%) (Auto) 6, Eosinophils (%) (Auto) 1, Basophils (%) (Auto) 0, Neutrophils # (Auto) 15.6H, Lymphocytes # (Auto) 1.8, Monocytes # (Auto) 1.2H, Eosinophils # (Auto) 0.2, Basophils # (Auto) 0.0 11/16/19 06:05: White Blood Count 22.4H, Red Blood Count 2.94L, Hemoglobin 9.3#L, Hematocrit 27L , Mean Corpuscular Volume 93, Mean Corpuscular Hemoglobin 32, Mean Corpuscular Hemoglobin Concent 34, Red Cell Distribution Width 12.7, Platelet Count 304, Mean Platelet Volume 10.6H, Neutrophils (%) (Auto) 86H, Lymphocytes (%) (Auto) 8L, Monocytes (%) (Auto) 7, Eosinophils (%) (Auto) 0, Basophils (%) (Auto) 0, Neutrophils # (Auto) 19.2H, Lymphocytes # (Auto) 1.7, Monocytes # (Auto) 1.5H, Eosinophils # (Auto) 0.0, Basophils # (Auto) 0.0 CLAIRE DESAI DO Nov 16, 2019 08:09
--- NOTE | 2019-11-16 08:15 | NUR ---
here to see pt.
[2019-11-16 09:00] VITALS: BP 94/50
--- NOTE | 2019-11-16 09:00 | NUR ---
initial shift assessment completed, see interventions for further. abd incision ANA, with Dermabond intact @ site. @ side, appropriate bonding noted.
--- NOTE | 2019-11-16 09:06 | Anesthesia-Regional Post-Op ---
Regional Patient Condition Mental Status: Alert, Oriented x3 Circulation: Same as Pre-Op Headache: Absent Sensation: Full Recovery Motor Block: Absent Post Op Complications Complications None Follow Up Care/Instructions Patient Instructions None needed. Anesthesia/Patient Condition Patient is doing well, no complaints, stable vital signs, no apparent adverse anesthesia problems. No complications reported per nursing. ASHER MCCOY CRNA Nov 16, 2019 09:06
[2019-11-16] MEDS: DOCUSATE SODIUM 100 MG (COLACE) CAP PO SCH ×2 (09:53→23:14)
[2019-11-16 13:00] VITALS: BP 107/61
[2019-11-16] MEDS: ENOXAPARIN 40 MG/0.4 ML (LOVENOX) SYR SQ SCH (13:11)
[2019-11-16 18:10] VITALS: BP 152/55
--- NOTE | 2019-11-16 18:21 | NUR ---
stork meal served.
[2019-11-16 23:10] VITALS: BP 93/51
--- NOTE | 2019-11-16 23:45 | NUR ---
Pt ambulatory off unit to vending machine, with staff.
[2019-11-17] MEDS: IBUPROFEN 600 MG (MOTRIN) TAB PO SCH ×2 (05:03→11:05)
[2019-11-17 05:04] VITALS: BP 106/59
[2019-11-17] MEDS: HYDROcodone/APAP 7.5 MG/325 MG (LORTAB, LORCET PLUS) TABLET PO PRN ×2 (05:04→11:07)
--- NOTE | 2019-11-17 07:18 | NUR ---
Med Student to room to see pt.
--- NOTE | 2019-11-17 07:37 | Postpartum Progress Note ---
PIERO CASTILLO MED STUDENT 11/17/19 0737: Note Note Day # 2 Subjective: Patient is without complaints. Ambulating, voiding and stooling. Tolerating a regular diet without nausea or vomiting. Normal lochia. Pain is well controlled with oral pain medications. Objective: Physical Exam: General - Alert and oriented, no apparent distress Abdomen - Soft, appropriately tender to palpation, non-distended, fundus firm at umbilicus Extremities - no edema, negative Jose Martin's bilaterally Incision -c/d/i Assessment: post- day # 2, status post delivery. Acute blood loss anemia Plan: Routine care. Encourage breast feeding. Encourage ambulation. Ferrous sulfate supplementation. Plan for discharge today Vitals - Labs Vital Signs - I&O Vital Signs Date Time Temp Pulse Resp B/P (MAP) Pulse Ox O2 Delivery O2 Flow Rate FiO2 11/17/19 05:04 37.0 90 18 106/59 (75) 100 Room Air 11/16/19 23:10 36.8 93 18 93/51 (65) 97 Room Air 11/16/19 18:10 36.7 104 18 152/55 (87) 97 Room Air 11/16/19 13:00 36.6 98 21 107/61 (76) 99 Room Air 11/16/19 09:00 36.3 91 20 94/50 (65) 97 Room Air ROSALIO DESAI DO 11/17/19 0800: Note Note Verification and Attestation of Medical Student E/M Service A medical student performed and documented this service in my presence. I reviewed and verified all information documented by the medical student and made modifications to such information, when appropriate. I personally performed the physical exam and medical decision making. Rosalio Desai, Nov 17, 2019,08:00 PIERO CASTILLO,MED STUDENT Nov 17, 2019 07:37 ROSALIO DESAI DO Nov 17, 2019 08:00
--- NOTE | 2019-11-17 08:00 | NUR ---
Dr Omalley here to see pt.
[2019-11-17] MEDS: DOCUSATE SODIUM 100 MG (COLACE) CAP PO SCH (09:56)
[2019-11-17 09:57] VITALS: BP 112/57
--- NOTE | 2019-11-17 11:11 | NUR ---
Discharge instructions explained to pt with copy provided to pt along with prescriptions. Pt notified of follow up appointments made. Pt verbalizes understanding of teaching and signs to verify. No questions or concerns voiced at this time.
--- NOTE | 2019-11-17 12:30 | NUR ---
Pt ambulates off unit to private vehicle accompanied by friend, infant, and OB staff. All personal belongings with pt. No s/s of distress noted.
== END 2019-11-17 12:30 | disposition home or self-care (01) | DRG 787 ==
LOC: LDRP 11-15 10:30
PROVIDERS: ADMIT Obstetrics & Gynecology; ATTEND Obstetrics & Gynecology
PROC: 10D00Z1 Extraction of Products of Conception, Low, Open Approach (ICD-10-PCS; principal; 2019-11-15 12:21)
DX: O34.211 Maternal care for low transverse scar from previous cesarean delivery (principal); D62 Acute posthemorrhagic anemia; Z37.0 Single live birth; O90.81 Anemia of the puerperium; Z3A.39 39 weeks gestation of pregnancy
CPT/HCPCS: 36415; 85025; 86850; 86900; 86901; 88307; 94664; 94760

== ENCOUNTER 2019-11-03 11:14 | Emergency (ER) | payer MEDICARE, MEDICAID ==
--- NOTE | 2019-11-03 11:31 | NUR ---
REGISTRATION REPORTS PT LEFT
== END 2019-11-03 11:31 | disposition left against medical advice (07) ==
LOC: EDUNIT# 11:14 → ER 11:17
DX: R05 Cough (principal); K30 Functional dyspepsia

== ENCOUNTER 2019-11-08 11:52 | Outpatient (CLI) | payer MEDICARE, MEDICAID ==
[~2019-11-08] VITALS: Ht 157 cm; Wt 91.8 kg
== END 2019-11-08 12:31 | disposition home or self-care (01) ==
LOC: PREOP 11:52
PROVIDERS: ATTEND Obstetrics & Gynecology
DX: Z01.818 Encounter for other preprocedural examination (principal)
CPT/HCPCS: 87081

== ENCOUNTER 2020-05-29 18:47 | Emergency (ER) | payer MEDICARE, MEDICAID ==
[~2020-05-29] VITALS: Ht 157 cm; Wt 77.0 kg
[~2020-05-29 18:47] MED LIST changes: +DCS100C PO; +HYDR-34 PO; +IBUP-844 PO
--- NOTE | 2020-05-29 19:09 | ED GU-Female ---
General Stated Complaint: BATCERIAL INFECTION Source: patient Exam Limitations: no limitations History of Present Illness Date Seen by Provider: May 29, 2020 Time Seen by Provider: 18:56 Initial Comments the patient arrives ER by private conveyance with chief complaint of vaginal discharge consistent with her history of bacterial vaginosis. She would like antibiotics. She's been she also has a UTI because she has burning when she urinates. No fevers chills nausea vomiting diarrhea constipation. Allergies and Home Medications Allergies Coded Allergies: aripiprazole (Verified Allergy, Severe, ANAPHYLAXIS, 11/08/19) ketorolac (Verified Allergy, Severe, TONGUE SWELLING, pt has received Ibuprofen, 11/15/19) latex (Verified Allergy, Mild, RASH, 11/08/19) Home Medications Docusate Sodium 100 Mg Capsule, 100 MG PO BID PRN for CONSTIPATION-1ST LINE Prescribed by: CLAIRE DESAI on 11/15/19 1223 Hydrocodone Bit/Acetaminophen 1 Ea Tablet, 1-2 EA PO Q6HR PRN for PAIN-MODERATE (5-7) Prescribed by: CLAIRE DESAI on 11/15/19 1223 Ibuprofen 600 Mg Tablet, 600 MG PO Q6HR Prescribed by: CLAIRE DESAI on 11/15/19 1223 Vit W-Ca,Fe,FA(<1 mg) 1 Each Tablet, 1 EACH PO DAILY, (Reported) Patient Home Medication List Home Medication List Reviewed: Yes Review of Systems Review of Systems Constitutional: No chills, No diaphoresis EENTM: No ear discharge, No ear pain Respiratory: No cough, No short of breath Cardiovascular: No Hx of Intervention, No palpitations Gastrointestinal: No abdominal pain, No nausea, No vomiting Genitourinary: see HPI, discharge, dysuria Musculoskeletal: No back pain, No joint pain All Other Systemes Reviewed Negative Unless Noted: Yes Past Heeayyp-Ksqimw-Rfpgya Hx Patient Social History Alcohol Use: Occasionally Uses Alcohol Beverage of Choice: Beer Recreational Drug Use: No Smoking Status: Current Everyday Smoker Type Used: Cigarettes 2nd Hand Smoke Exposure: Yes Recent Foreign Travel: No Contact w/Someone Who Travel: No Recent Hopitalizations: No Immunizations Up To Date Tetanus Booster (TDap): Unknown Date of Influenza Vaccine: Oct 18, 2019 Seasonal Allergies Seasonal Allergies: Yes Past Medical History Surgeries: Yes (URETHRAL DILATION X 2; X 2, NECK SURGERY) Adenoidectomy, Bladder Surgery, Section, Tonsillectomy Respiratory: Yes Asthma Currently Using CPAP: No Currently Using BIPAP: No Cardiac: Yes Neurological: Yes 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 Disorders: No Female 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 Sexually Transmitted Disease: No HIV/AIDS: No Genitourinary: No Gastrointestinal: Yes Gastroesophageal Reflux Musculoskeletal: Yes (CHRONIC NECK PAIN ) Degenerate Disk Disease Endocrine: No HEENT: No Loss of Vision: Denies Hearing Impairment: Denies Cancer: No Psychosocial: Yes Anxiety, Bipolar, Schizophrenia, Depression Integumentary: No Blood Disorders: No Adverse Reaction/Blood Tranf: No (N/A) Family Medical History Asthma 19 FATHER FH: COPD (chronic obstructive pulmonary disease) 19 FATHER FH: bladder cancer 19 FATHER FH: emphysema 19 FATHER Psychosocial problem 19 FATHER 19 MOTHER G8 BROTHER G8 SISTER Physical Exam Vital Signs Vital Signs - First Documented 05/29/20 19:11 Temp 36.7 Pulse 105 Resp 18 B/P (MAP) 125/85 (98) O2 Delivery Room Air Capillary Refill : Height, Weight, BMI Height: 5'2.00" Weight: 160lbs. oz. 72.328630kp; 37.49 BMI Method:Stated General Appearance: WD/WN, no apparent distress HEENT: PERRL/EOMI, pharynx normal Neck: full range of motion, normal inspection Cardiovascular: normal peripheral pulses, regular rate, rhythm Respiratory: no respiratory distress, no accessory muscle use Neurologic/Psychiatric: alert, normal mood/affect, oriented x 3 Skin: normal color, warm/dry Progress/Results/Core Measures Suspected Sepsis SIRS Temperature: Pulse: Respiratory Rate: Blood Pressure / Mean: Results/Orders Lab Results Laboratory Tests Test 05/29/20 19:01 Range/Units Urine Color YELLOW Urine Clarity SL CLOUDY Urine pH 5.5 5-9 Urine Specific [place] >=1.030 1.016-1.022 Urine Protein NEGATIVE NEGATIVE Urine Glucose (UA) NEGATIVE NEGATIVE Urine Ketones NEGATIVE NEGATIVE Urine Nitrite POSITIVE H NEGATIVE Urine Bilirubin NEGATIVE NEGATIVE Urine Urobilinogen 0.2 < = 1.0 MG/DL Urine Leukocyte Esterase TRACE H NEGATIVE Urine RBC (Auto) 1+ H NEGATIVE Urine RBC RARE /HPF Urine WBC 10-25 H /HPF Urine Squamous Epithelial Cells 25-50 H /HPF Urine Crystals NONE /LPF Urine Bacteria LARGE H /HPF Urine Casts NONE /LPF Urine Mucus SMALL H /LPF Urine Culture Indicated YES My Orders Orders - BIRGIT CRAWFORD Ua Culture If Indicated (05/29/20 19:03) Hcg,Qualitative Urine (05/29/20 19:11) Urine Culture (05/29/20 19:01) Vital Signs/I&O 05/29/20 19:11 Temp 36.7 Pulse 105 Resp 18 B/P (MAP) 125/85 (98) O2 Delivery Room Air Capillary Refill : Progress Note : Time: 19:05 Progress Note urinalysis and bedside . She has declined wet prep. Departure Impression Primary Impression: Urinary tract infection Qualified Codes: N30.00 - Acute cystitis without hematuria Disposition: HOME, SELF-CARE Condition: Stable Departure-Patient Inst. Decision time for Depature: 19:43 Referrals: NO,LOCAL PHYSICIAN (PCP/Family) Primary Care Physician Patient Instructions: Urinary Tract Infection, Adult (DC) Add. Discharge Instructions: Bactrim one tablet twice a day with food for one week. Follow-up with primary care if symptoms are not improving in 3-4 days. Drink lots of fluids. Scripts Sulfamethoxazole/Trimethoprim (Bactrim Ds Tablet) 1 Each Tablet 1 EACH PO BID for 7 Days, #13 TAB 0 Refills Prov: BIRGIT CRAWFORD 05/29/20 BIRGIT CRAWFORD May 29, 2020 19:09
[2020-05-29 19:17] LABS: BILIRUBIN,URINE NEGATIVE (NEGATIVE); COLOR,URINE YELLOW; GLUCOSE, URINE (UA) NEGATIVE (NEGATIVE); KETONES,URINE NEGATIVE (NEGATIVE); LEUKOCYTE ESTERASE ,URINE TRACE (NEGATIVE); NITRITE,URINE POSITIVE (NEGATIVE); PH,URINE 5.5 (5-9); PROTEIN,URINE NEGATIVE (NEGATIVE)
[2020-05-29 19:23] LABS: BACTERIA,URINE LARGE /HPF; CLARITY,URINE SL CLOUDY; RBC,URINE RARE /HPF; SQUAMOUS EPITHELIAL CELL,UR 25-50 /HPF
[2020-05-29] MEDS ORDERED: SULF1TAB35 PO (19:44)
[2020-05-29 19:45] VITALS: BP 125/85
[2020-05-29] MEDS ORDERED: TRIM/SULFAMETH 160/800 (SEPTRA DS) TAB PO ONE (19:45)
[2020-05-29] MEDS ORDERED: METR500T PO (19:48)
== END 2020-05-29 19:45 | disposition home or self-care (01) ==
LOC: EDUNIT# 18:47 → ER 18:49
DX: N39.0 Urinary tract infection, site not specified (principal); G89.29 Other chronic pain; M54.2 Cervicalgia; F17.210 Nicotine dependence, cigarettes, uncomplicated; Z82.49 Family history of ischemic heart disease and other diseases of the circulatory system; Z80.52 Family history of malignant neoplasm of bladder; Z88.6 Allergy status to analgesic agent; Z91.040 Latex allergy status; Z88.8 Allergy status to other drugs, medicaments and biological substances; Z79.891 Long term (current) use of opiate analgesic
CPT/HCPCS: 81000; 84703; 87077; 87088; 99282

== ENCOUNTER 2020-07-08 23:12 | Emergency (ER) | payer MEDICAID ==
[~2020-07-08 23:12] MED LIST changes: +METR500T PO; +SULF1TAB35 PO
--- NOTE | 2020-07-08 23:40 | NUR ---
TO WAITING ROOM TO CALL PATIENT BACK TO ROOM 5, PATIENT IS NOT IN WAITING ROOM. THIS RN CHECKED OUTSIDE AND AGAIN CALLED HER NAME. PATIENT WAS NOT PRESENT.
[2020-07-11] MEDS ORDERED: FOLI0.8T PO (12:48)
[2020-07-11] MEDS ORDERED: AMOX-358 PO (12:48)
== END 2020-07-08 23:44 | disposition left against medical advice (07) ==
LOC: EDUNIT# 23:12 → ER 23:14
DX: R23.8 Other skin changes (principal)

== ENCOUNTER 2020-07-11 00:40 | Inpatient (IN) | payer MEDICAID ==
[~2020-07-11] VITALS: Ht 157.5 cm; Wt 80.1 kg
--- NOTE | 2020-07-11 02:05 | NUR ---
WOUND CX COLLECTED FROM BOTTOM OF RIGHT FOOT BY DR. ZEPEDA AND SENT TO LAB.
[2020-07-11] MEDS ORDERED: NS IV 1000 ML 1,000 ML IV SCH (02:12)
[2020-07-11] MEDS ORDERED: PIPERACILLIN SODIUM/TAZOBACTAM 4.5 GM in NS (IVPB) 100 ML IV ONE (02:15)
[2020-07-11] MEDS ORDERED: MUPIROCIN 2% OINT 22 GM (BACTROBAN) TUBE ONE (02:23)
[2020-07-11] MEDS ORDERED: ACETAMINOPHEN 500 MG TAB (TYLENOL) PO ONE (03:00)
--- NOTE | 2020-07-11 03:06 | ED Lower Extremity ---
General Stated Complaint: RT FOOT PAIN,8WKS PREG Source: patient History of Present Illness Date Seen by Provider: Jul 11, 2020 Time Seen by Provider: 02:02 Initial Comments PT ARRIVES VIA POV C/O WOUND ON THE BOTTOM OF RIGHT FOOT FOR 2-3 WEEKS PT THINKS IT STARTED "CRACKED SKIN" ON THE BOTTOM OF HER FOOT--DENIES ANY INJURY TO THE AREA AREA IS DRAINING FOOT IS VERY PAINFUL NO KNOWN FEVER NO NAUSEA/VOMITING DENIES HISTORY OF SIMILAR PT STATES SHE WENT TO [facility]ALK IN [facility]IC TWICE FOR THIS, AND AREA WAS CULTURED AND GREW OUT MRSA WAS PUT ON BOTH CIPRO AND DOXYCYCLINE--FINISHED THOSE ON Wednesday07/09/20 STATES FOOT IS NOT BETTER AND IS GETTING WORSE HAS NOT ATTEMPTED TO SEE HER PCP FOR THIS--GOES TO [facility] MAINLY, BUT HAS ALSO HAS SEEN DR. HOLLAND ADDITIONALLY, PT WAS SEEN HERE 05/29/20 FOR UTI AND WAS GIVEN RX FOR BACTRIM, AND TEST WAS NEGATIVE AT THAT TIME. PT IS 8 WEEKS , WITH LMP SOME TIME IN MAY WENT TO [facility] AND HAD ULTRASOUND WHICH SHOWED SHE WAS 8 WEEKS 2 DAYS PT HAS NOT MADE ANY APPOINTMENTS WITH OB DR. PT DELIVERED 11/15/19 PT IS NOW AB 0 LAST TETANUS VACCINATION IS UNKNOWN PCP: [facility], HAS ALSO BEEN TO DR. HOLLAND Allergies and Home Medications Allergies Coded Allergies: aripiprazole (Verified Allergy, Severe, ANAPHYLAXIS, 11/08/19) ketorolac (Verified Allergy, Severe, TONGUE SWELLING, pt has received Ibuprofen, 11/15/19) latex (Verified Allergy, Mild, RASH, 11/08/19) Home Medications Docusate Sodium 100 Mg Capsule, 100 MG PO BID PRN for CONSTIPATION-1ST LINE Prescribed by: CLAIRE DESAI on 11/15/19 1223 Hydrocodone Bit/Acetaminophen 1 Ea Tablet, 1-2 EA PO Q6HR PRN for PAIN-MODERATE (5-7) Prescribed by: CLAIRE DESAI on 11/15/19 1223 Ibuprofen 600 Mg Tablet, 600 MG PO Q6HR Prescribed by: CLAIRE DESAI on 11/15/19 1223 Metronidazole 500 Mg Tablet, 500 MG PO BID Prescribed by: BIRGIT CRAWFORD on 05/29/201947 Vit W-Ca,Fe,FA(<1 mg) 1 Each Tablet, 1 EACH PO DAILY, (Reported) Sulfamethoxazole/Trimethoprim 1 Each Tablet, 1 EACH PO BID Prescribed by: BIRGIT CRAWFORD on 05/29/201943 Patient Home Medication List Home Medication List Reviewed: Yes Review of Systems Constitutional: no symptoms reported; No chills, No diaphoresis, No fever Respiratory: no symptoms reported Cardiovascular: no symptoms reported Gastrointestinal: no symptoms reported Genitourinary: no symptoms reported : Yes Control/STD Prophylaxis: None Musculoskeletal: see HPI Skin: see HPI Psychiatric/Neurological: No Symptoms Reported Past Efihkyn-Gwraop-Lfggwt Hx Past Med/Social Hx: Reviewed and Corrections made Patient Social History Alcohol Use: Occasionally Uses Alcohol Beverage of Choice: Beer Recreational Drug Use: Yes (HX OF IV METH USE) Drug of Choice: HX OF IV METH USE Smoking Status: Current Everyday Smoker (1 PPD) Type Used: Cigarettes 2nd Hand Smoke Exposure: Yes Recent Foreign Travel: No Contact w/Someone Who Travel: No Recent Hopitalizations: No Immunizations Up To Date Tetanus Booster (TDap): Unknown Date of Influenza Vaccine: Oct 18, 2019 Seasonal Allergies Seasonal Allergies: Yes Past Medical History Surgeries: Yes (URETHRAL DILATION X 2; X 2, NECK SURGERY) Adenoidectomy, Bladder Surgery, Section, Tonsillectomy Respiratory: Yes Asthma Currently Using CPAP: No Currently Using BIPAP: No Cardiac: Yes Hypertension Neurological: Yes Headaches /Migraines 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 Disorders: No Female 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 Sexually Transmitted Disease: Yes (GENITAL HERPES) HIV/AIDS: No Genitourinary: Yes Bladder Infection Gastrointestinal: Yes Gastroesophageal Reflux Musculoskeletal: Yes (CHRONIC NECK PAIN ) Degenerate Disk Disease, Chronic Back Pain Endocrine: No HEENT: No Loss of Vision: Denies Hearing Impairment: Denies Cancer: No Psychosocial: Yes (SUBSTANCE ABUSE) Anxiety, Bipolar, Schizophrenia, Depression Integumentary: Yes (MRSA) Blood Disorders: No Adverse Reaction/Blood Tranf: No (N/A) Family Medical History Asthma 19 FATHER FH: COPD (chronic obstructive pulmonary disease) 19 FATHER FH: bladder cancer 19 FATHER FH: emphysema 19 FATHER Psychosocial problem 19 FATHER 19 MOTHER G8 BROTHER G8 SISTER SOCIAL HISTORY: -ETOH--OCCASIONAL USE -DRUGS--+ IV METH USE, ALSO UDS + FOR BENZODIAZEPINES, THC -SMOKES 1 PPD Physical Exam Vital Signs Capillary Refill : Height, Weight, BMI Height: 5'2.00" Weight: 160lbs. oz. 72.397146jh; 31.00 BMI Method:Stated General Appearance: WD/WN, no apparent distress, other (SPEECH SLIGHLTY M UMBLED, RAPID AND ERRATIC--APPEARS TO BE UNDER THE INFLUENCE OF SOME SUBSTANCE/S) Cardiovascular: normal peripheral pulses, regular rate, rhythm, no murmur Respiratory: normal breath sounds Gastrointestinal: non tender, soft Hips: right hip normal inspection Legs: right leg normal inspection, right leg other (ANTERIOR ASPECT OF RIGHT LOWER LEG WITH 1 1/2 CM AREA OF ERYTHEMA, SLIGHT SWELLING AND CENTRAL SCAB. ) Knees: right knee normal inspection Ankles: right ankle normal inspection Feet: right foot other (BOTTOM OF LEFT FOOT WITH 4 X 6 CM AREA OF PARTIALLY DENUDED BLISTER WITH SUB Q PURULENCE AND WHITE TO SEROUS DRAINAGE. + STREAKS PRESENT EXTENDING TO ARCH OF FOOT. ENTIRE FOOT WITH MODERATE SWELLING AND REDNE SS AND WARMTH. MOTOR/SENSORY/VASCULAR INTACT. 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, no motor/sensory deficits, al ert, normal mood/affect, oriented x 3 Skin: normal color, warm/dry, other (ASA BOVCE) Progress/Results/Core Measures Results/Orders Lab Results Laboratory Tests Test 07/11/20 02:10 07/11/20 02:41 Range/Units Urine Color YELLOW Urine Clarity CLEAR Urine pH 6.0 5-9 Urine Specific [place] >=1.030 1.016-1.022 Urine Protein NEGATIVE NEGATIVE Urine Glucose (UA) NEGATIVE NEGATIVE Urine Ketones NEGATIVE NEGATIVE Urine Nitrite NEGATIVE NEGATIVE Urine Bilirubin NEGATIVE NEGATIVE Urine Urobilinogen 0.2 < = 1.0 MG/DL Urine Leukocyte Esterase NEGATIVE NEGATIVE Urine RBC (Auto) TRACE-I NEGATIVE Urine RBC 0-2 /HPF Urine WBC 0-2 /HPF Urine Squamous Epithelial Cells 5-10 /HPF Urine Crystals PRESENT H /LPF Urine Calcium Oxalate Crystals FEW H /LPF Urine Amorphous Sediment RARE [place]OOKE URATES H /LPF Urine Bacteria TRACE /HPF Urine Casts NONE /LPF Urine Mucus MODERATE H /LPF Urine Culture Indicated NO Urine Opiates Screen NEGATIVE NEGATIVE Urine Oxycodone Screen NEGATIVE NEGATIVE Urine Methadone Screen NEGATIVE NEGATIVE Urine Propoxyphene Screen NEGATIVE NEGATIVE Urine Barbiturates Screen NEGATIVE NEGATIVE Ur Tricyclic Antidepressants Screen NEGATIVE NEGATIVE Urine Phencyclidine Screen NEGATIVE NEGATIVE Urine Amphetamines Screen POSITIVE H NEGATIVE Urine Methamphetamines Screen POSITIVE H NEGATIVE Urine Benzodiazepines Screen POSITIVE H NEGATIVE Urine Cocaine Screen NEGATIVE NEGATIVE Urine Cannabinoids Screen POSITIVE H NEGATIVE White Blood Count 12.9 H 4.3-11.0 10^3/uL Red Blood Count 4.27 3.80-5.11 10^6/uL Hemoglobin 13.3 11.5-16.0 g/dL Hematocrit 40 35-52 % Mean Corpuscular Volume 93 80-99 fL Mean Corpuscular Hemoglobin 31 25-34 pg Mean Corpuscular Hemoglobin Concent 34 32-36 g/dL Red Cell Distribution Width 12.3 10.0-14.5 % Platelet Count 328 130-400 10^3/uL Mean Platelet Volume 9.6 9.0-12.2 fL Immature Granulocyte % (Auto) 0 % Neutrophils (%) (Auto) 69 42-75 % Lymphocytes (%) (Auto) 20 12-44 % Monocytes (%) (Auto) 5 0-12 % Eosinophils (%) (Auto) 6 0-10 % Basophils (%) (Auto) 1 0-10 % Neutrophils # (Auto) 8.8 H 1.8-7.8 10^3/uL Lymphocytes # (Auto) 2.6 1.0-4.0 10^3/uL Monocytes # (Auto) 0.6 0.0-1.0 10^3/uL Eosinophils # (Auto) 0.7 H 0.0-0.3 10^3/uL Basophils # (Auto) 0.1 0.0-0.1 10^3/uL Immature Granulocyte # (Auto) 0.0 0.0-0.1 10^3/uL Erythrocyte Sedimentation Rate 17 0-20 MM/HR Sodium Level 140 135-145 MMOL/L Potassium Level 3.8 3.6-5.0 MMOL/L Chloride Level 103 98-107 MMOL/L Carbon Dioxide Level 25 21-32 MMOL/L Anion Gap 12 5-14 MMOL/L Blood Urea Nitrogen 12 7-18 MG/DL Creatinine 0.73 0.60-1.30 MG/DL Estimat Glomerular Filtration Rate > 60 BUN/Creatinine Ratio 16 Glucose Level 78 70-105 MG/DL Lactic Acid Level 1.36 0.50-2.00 MMOL/L Calcium Level 9.1 8.5-10.1 MG/DL Corrected Calcium 9.2 8.5-10.1 MG/DL Total Bilirubin 0.1 0.1-1.0 MG/DL Aspartate Amino Transf (AST/SGOT) 17 5-34 U/L Alanine Aminotransferase (ALT/SGPT) 60 H 0-55 U/L Alkaline Phosphatase 87 40-136 U/L C-Reactive Protein High Sensitivity 0.36 0.00-0.50 MG/DL Total Protein 6.7 6.4-8.2 GM/DL Albumin 3.9 3.2-4.5 GM/DL Procalcitonin 0.02 <0.10 NG/ML Human Chorionic Gonadotropin, Quant 68282 H <5 MIU/ML My Orders Orders - RLEL ZEPEDA DO Ed Iv/Invasive Line Start (07/11/20 02:12) Heart Tones (07/11/20 02:12) Foot, Right, 3 View (07/11/20 02:12) Cbc With Automated Diff (07/11/20 02:12) Comprehensive Metabolic Panel (07/11/20 02:12) Hs C Reactive Protein (07/11/20 02:12) Erythrocyte Sedimentation Rate (07/11/20 02:12) Drug Screen Stat (Urine) (07/11/20 02:12) Hcg,Quantitative (07/11/20 02:12) Lactic Acid Analyzer (07/11/20 02:12) Procalcitonin (Pct) (07/11/20 02:12) Ua Culture If Indicated (07/11/20 02:12) Blood Culture (07/11/20 02:12) Wound Culture (07/11/20 02:12) Wound Dressing-Ed (07/11/20 02:12) Mupirocin Ointment (Bactroban Ointment (07/11/20 09:00) Ed Iv/Invasive Line Start (07/11/20 02:12) Ns Iv 1000 Ml (Sodium Chloride 0.9%) (07/11/20 02:12) Piperacillin Sodium/Tazobactam (Zosyn Vi (07/11/20 02:15) Mupirocin Ointment (Bactroban Ointment (07/11/20 02:23) Acetaminophen Tablet (Tylenol Tablet) (10/8/20 03:00) Dipht,Pertuss(Acell),Tet Adult (Boostrix (07/11/20 03:15) Medications Given in ED Current Medications Medications Dose Ordered Sig/Myron Route Start Time Stop Time Status Last Admin Dose Admin Acetaminophen 1,000 mg ONCE ONCE PO 07/11/20 03:00 07/11/20 03:01 DC 07/11/20 03:03 1,000 MG Diphtheria/ Tetanus/Acell Pertussis 0.5 ml ONCE ONCE IM 07/11/20 03:15 07/11/20 03:16 DC 07/11/20 04:15 0.5 ML Piperacillin Sod/ Tazobactam Sod 4.5 gm/Sodium Chloride 100 ml @ 200 mls/hr ONCE ONCE IV 07/11/20 02:15 07/11/20 02:45 DC 07/11/20 04:15 200 MLS/HR Progress Progress Note : Progress Note FHR 120'S CULTURES OBTAINED FROM THE WOUND PT REPEATEDLY DENIES DRUG USE, DESPITE UDS RESULTS. SLEPT THROUGH MOST OF ER STAY Diagnostic Imaging Comments XRAYS RIGHT FOOT--NO ACUTE PROCESS, PENDING RADIOLOGIST REVIEW Reviewed: Reviewed by Me Departure Communication (Admissions) 1520--SPOKE WITH DR. FLORES, HOSPITALIST S3B MULTI SENSOR OPERATOR FOR [facility]. ACCEPTS PT FOR ADMIT. ORDERS NOTED. Impression Primary Impression: Cellulitis of right foot Additional Impressions: Failure of outpatient treatment Illicit drug use 8 weeks gestation of Ucqldnekyv-euuaxopek-sowztvj (DPT) vaccination administered at current visit Disposition: ADMITTED INPATIENT Condition: Stable Admissions Decision to Admit Reason: Admit from ER (General) Decision to Admit/Date: Jul 11, 2020 Time/Decision to Admit Time: 04:20 Departure-Patient Inst. Referrals: NO,LOCAL PHYSICIAN (PCP/Family) Primary Care Physician RELL ZEPEDA DO Jul 11, 2020 03:06
[2020-07-11] MEDS ORDERED: TETANUS,DIPTH,PERTUSS P/F (BOOSTRIX) 0.5 ML VIAL IM ONE (03:15)
[2020-07-11 03:16] LABS: BASOPHILS # (AUTO) 0.1 10^3/uL (0.0-0.1); BASOPHILS % (AUTO) 1 % (0-10); EOSINOPHILS # (AUTO) 0.7 10^3/uL (0.0-0.3); EOSINOPHILS % (AUTO) 6 % (0-10); HEMATOCRIT 40 % (35-52); HEMOGLOBIN 13.3 g/dL (11.5-16.0); LYMPHOCYTES # (AUTO) 2.6 10^3/uL (1.0-4.0); LYMPHOCYTES % (AUTO) 20 % (12-44); MEAN CORPUSCULAR HEMOGLOBIN 31 pg (25-34); MEAN CORPUSCULAR HGB CONC 34 g/dL (32-36); MEAN CORPUSCULAR VOLUME 93 fL (80-99); MEAN PLATELET VOLUME 9.6 fL (9.0-12.2); MONOCYTES # (AUTO) 0.6 10^3/uL (0.0-1.0); MONOCYTES % (AUTO) 5 % (0-12); NEUTROPHILS # (AUTO) 8.8 10^3/uL (1.8-7.8); NEUTROPHILS % (AUTO) 69 % (42-75); PLATELET COUNT 328 10^3/uL (130-400); WHITE BLOOD COUNT 12.9 10^3/uL (4.3-11.0)
[2020-07-11 03:22] LABS: ALBUMIN 3.9 GM/DL (3.2-4.5); CHLORIDE 103 MMOL/L (98-107); POTASSIUM 3.8 MMOL/L (3.6-5.0); SODIUM 140 MMOL/L (135-145)
[2020-07-11 03:23] LABS: CALCIUM 9.1 MG/DL (8.5-10.1)
[2020-07-11 03:25] LABS: GLUCOSE 78 MG/DL (70-105); TOTAL PROTEIN 6.7 GM/DL (6.4-8.2)
[2020-07-11 03:26] LABS: BILIRUBIN,TOTAL 0.1 MG/DL (0.1-1.0); CARBON DIOXIDE 25 MMOL/L (21-32)
[2020-07-11 03:28] LABS: ALKALINE PHOSPHATASE 87 U/L (40-136); CREATININE SERUM 0.73 MG/DL (0.60-1.30); GFR ESTIMATED > 60
[2020-07-11 03:29] LABS: BUN/CREATININE RATIO 16
[2020-07-11 03:31] LABS: ALANINE AMINOTRANSFERASE 60 U/L (0-55)
[2020-07-11 03:41] LABS: BILIRUBIN,URINE NEGATIVE (NEGATIVE); CLARITY,URINE CLEAR; COLOR,URINE YELLOW; GLUCOSE, URINE (UA) NEGATIVE (NEGATIVE); KETONES,URINE NEGATIVE (NEGATIVE); LEUKOCYTE ESTERASE ,URINE NEGATIVE (NEGATIVE); NITRITE,URINE NEGATIVE (NEGATIVE); PROTEIN,URINE NEGATIVE (NEGATIVE)
[2020-07-11 03:59] LABS: AMPHETAMINE SCREEN, URINE POSITIVE (NEGATIVE); BARBITURATE SCREEN URINE NEGATIVE (NEGATIVE); BENZODIAZEPINES SCREEN URINE POSITIVE (NEGATIVE); CANNABINOID SCREEN, URINE POSITIVE (NEGATIVE); COCAINE SCREEN URINE NEGATIVE (NEGATIVE); METHADONE STAT NEGATIVE (NEGATIVE); METHAMPHETAMINE SCREEN URINE S POSITIVE (NEGATIVE); OPIATE SCREEN URINE NEGATIVE (NEGATIVE); OXYCODONE STAT NEGATIVE (NEGATIVE); PROPOXYPHENE STAT NEGATIVE (NEGATIVE); TRICYCLIC ANTIDEPRESSANTS SCRE NEGATIVE (NEGATIVE)
[2020-07-11 04:02] LABS: AMORPHOUS SEDIMENT,UR RARE AMOR URATES /LPF; BACTERIA,URINE TRACE /HPF; RBC,URINE 0-2 /HPF; WBC,URINE 0-2 /HPF
[2020-07-11 04:03] LABS: CALCIUM OXALATE CRYSTALS,UR FEW /LPF
[2020-07-11 04:08] LABS: ERYTHROCYTE SEDIMENTATION RATE 17 MM/HR (0-20)
--- NOTE | 2020-07-11 05:12 | NUR ---
ELOY HALEY admitted to room 412-1, with an admitting diagnosis of Cellulitis on RIGHT BOTTOM FOOT, on 07/11/20 fromer via WHEELCHAIR, accompanied by STAFF.ELOY HALEY introduced to surroundings, call light, bed controls, phone, TV, temperature control, lights, meal times, smoking policy, visitor policy, side rail policy, bathrooms and showers. Patient Rights given to patient in the handbook. ELOY HALEY verbalizes understanding that [facility] is not responsible for the loss or damage to any personal effects or valuables that are kept in the patients posession during their hospitalization.
[2020-07-11 05:15] VITALS: BP 112/62
[2020-07-11] MEDS ORDERED: CATHETER FLUSH 10 ML SYR IV PRN (05:45)
[2020-07-11] MEDS ORDERED: HYDROcodone/APAP 5 MG/325 MG (LORTAB) TAB PO PRN (05:45)
[2020-07-11] MEDS ORDERED: CATHETER FLUSH 10 ML SYR IV SCH (06:00)
[2020-07-11] MEDS ORDERED: ENOXAPARIN 40 MG/0.4 ML (LOVENOX) SYR SC SCH (06:00)
[2020-07-11] MEDS ORDERED: VANCOMYCIN INJECTION 1,500 MG in NS IV 500 ML 500 ML IV SCH ×2 (06:30→08:00)
[2020-07-11 06:40] LABS: BASOPHILS # (AUTO) 0.1 10^3/uL (0.0-0.1); BASOPHILS % (AUTO) 0 % (0-10); EOSINOPHILS # (AUTO) 0.6 10^3/uL (0.0-0.3); EOSINOPHILS % (AUTO) 5 % (0-10); HEMATOCRIT 38 % (35-52); HEMOGLOBIN 12.7 g/dL (11.5-16.0); LYMPHOCYTES # (AUTO) 2.5 10^3/uL (1.0-4.0); LYMPHOCYTES % (AUTO) 21 % (12-44); MEAN CORPUSCULAR HEMOGLOBIN 31 pg (25-34); MEAN CORPUSCULAR HGB CONC 33 g/dL (32-36); MEAN CORPUSCULAR VOLUME 94 fL (80-99); MEAN PLATELET VOLUME 9.7 fL (9.0-12.2); MONOCYTES # (AUTO) 0.6 10^3/uL (0.0-1.0); MONOCYTES % (AUTO) 5 % (0-12); NEUTROPHILS # (AUTO) 8.2 10^3/uL (1.8-7.8); NEUTROPHILS % (AUTO) 68 % (42-75); PLATELET COUNT 301 10^3/uL (130-400)
[2020-07-11 06:50] LABS: ALBUMIN 3.4 GM/DL (3.2-4.5)
[2020-07-11 06:51] LABS: CHLORIDE 110 MMOL/L (98-107); POTASSIUM 3.9 MMOL/L (3.6-5.0); SODIUM 138 MMOL/L (135-145)
[2020-07-11 06:52] LABS: CALCIUM 8.3 MG/DL (8.5-10.1)
[2020-07-11 06:53] LABS: GLUCOSE 94 MG/DL (70-105); TOTAL PROTEIN 5.9 GM/DL (6.4-8.2)
[2020-07-11 06:54] LABS: CARBON DIOXIDE 18 MMOL/L (21-32)
[2020-07-11 06:55] LABS: BILIRUBIN,TOTAL 0.2 MG/DL (0.1-1.0)
[2020-07-11 06:56] LABS: ALKALINE PHOSPHATASE 75 U/L (40-136)
[2020-07-11 06:57] LABS: CREATININE SERUM 0.63 MG/DL (0.60-1.30); GFR ESTIMATED > 60
[2020-07-11 06:58] LABS: BUN/CREATININE RATIO 17
[2020-07-11 06:59] LABS: ALANINE AMINOTRANSFERASE 53 U/L (0-55)
--- NOTE | 2020-07-11 07:10 | Diagnostic Imaging Report ---
INDICATION: Foot pain. 3 views of the right foot were obtained. FINDINGS: The alignment is normal. There is no fracture or dislocation. Soft tissues are unremarkable. IMPRESSION: No fracture or dislocation. Dictated by: Dictated on workstation # [id number]
--- NOTE | 2020-07-11 07:35 | NUR ---
PTD VANCOMYCIN LABS: 80.1 KG, SCr 0.63, CrCl 118.7, BMI 32.3 LOADING DOSE 20MG/KG x 80.1KG ~ 1500MG; MAINT DOSE 15MG/KG x 80.1KG ~ 1250MG Q12H. VANCOMYCIN TROUGH DUE 07/12 @ 1900. IF TROUGH IS >20, HOLD DOSE & NOTIFY PHARMACY FOR ADJUSTMENTS. Addendum: 07/11/20 at 0755 by [facility] WILL CHECK VANCOMYCIN LEVEL 07/12 @ 0700 (PRIOR TO 3RD DOSE). IF TROUGH IS >20, HOLD DOSE & NOTIFY PHARMACY FOR ADJUSTMENTS.
[2020-07-11 08:00] VITALS: BP 102/73
[2020-07-11] MEDS ORDERED: FLU QUADRIvalent (3YOA+) 60 mcg/0.5 ml 2020-21 (AFLURIA) IM ONE (08:00)
[2020-07-11] MEDS ORDERED: MUPIROCIN 2% OINT 22 GM (BACTROBAN) TUBE TOP SCH ×2 (09:00)
--- NOTE | 2020-07-11 09:00 | History & Physical-Hospitalist ---
History of Present Illness HPI/Chief Complaint Patient is a 40yo WF patient of [facility] who presented to [facility] ED c/o wound on the bottom of her R foot for x2-3 weeks. She states she first noticed that the bottom of her foot was dry and cracked, and then became painful and started swelling. She initially tried an OTC antibiotic ointment, which did not help. She went to [facility] walk-in clinic twice and cultures were taken which grew MRSA. She was then started on Cipro and doxycycline, and she completed both courses two days ago. She states her foot has not gotten better after the abx and has been draining fluid. She denies fevers, chills, dizziness, CP, SOB, n/v/d/c. She denies any injury or trauma to the area, and denies this ever happening before. Urine drug screen in ED was positive for methamphetamine, benzodiazepines, and cannabinoids. She is also 8 weeks per ultrasound at clinic with her LMP sometime in May, and has has not yet received care. Source: patient Exam Limitations: no limitations Date Seen 07/11/20 Time Seen by a Provider: 07:50 Attending Physician Suni Aguilar DO [facility] Referring Physician Date of Admission Jul 11, 2020 at 04:20 Home Medications & Allergies Home Medications Reviewed patient Home Medication Reconciliation performed by pharmacy medication reconciliations generation technician and/or nursing. Patients Allergies have been reviewed. Allergies Allergies Coded Allergies aripiprazole (Verified Allergy, Severe, ANAPHYLAXIS, 11/08/19) ketorolac (Verified Allergy, Severe, TONGUE SWELLING, pt has received Ib uprofen, 11/15/19) latex (Verified Allergy, Mild, RASH, 11/08/19) Past Ylyxcxq-Yxuecp-Dpnqbj Hx Past Med/Social Hx: Reviewed and Corrections made Patient Social History Alcohol Use: Occasionally Uses Alcohol Beverage of Choice: Beer Recreational Drug Use: Yes (HX OF IV METH USE) Drug of Choice: HX OF IV METH USE Smoking Status: Current Everyday Smoker (1 PPD) Type Used: Cigarettes 2nd Hand Smoke Exposure: Yes Recent Foreign Travel: No Contact w/other who traveled: No Recent Hopitalizations: No Recent Infectious Disease Expo: No Immunizations Up To Date Tetanus Booster (TDap): Unknown Date of Influenza Vaccine: Oct 18, 2019 Seasonal Allergies Seasonal Allergies: Yes Past Medical History Surgeries: Adenoidectomy, Bladder Surgery, Section, Tonsillectomy Currently Using CPAP: No Currently Using BIPAP: No Cardiac: Hypertension Neurological: Headaches /Migraines 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: No Sexually Transmitted Disease: Yes (GENITAL HERPES) HIV/AIDS: No Female 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 IUD Genitourinary: Bladder Infection Gastrointestinal: Gastroesophageal Reflux Musculoskeletal: Degenerate Disk Disease, Chronic Back Pain Loss of Vision: Denies Hearing Impairment: Denies Psychosocial: Anxiety, Bipolar, Schizophrenia, Depression History of Blood Disorders: No Adverse Reaction to Blood Mondragon: No (N/A) Family History Asthma 19 FATHER FH: COPD (chronic obstructive pulmonary disease) 19 FATHER FH: bladder cancer 19 FATHER FH: emphysema 19 FATHER Psychosocial problem 19 FATHER 19 MOTHER G8 BROTHER G8 SISTER SOCIAL HISTORY: -ETOH--OCCASIONAL USE -DRUGS--+ IV METH USE, ALSO UDS + FOR BENZODIAZEPINES, THC -SMOKES 1 PPD Review of Systems Constitutional: No chills, No dizziness, No fever, No weakness EENTM: No hearing loss, No vision loss, No hoarseness, No nose congestion, No throat pain Respiratory: No cough, No phlegm, No short of breath, No wheezing Cardiovascular: No chest pain, No edema, No palpitations Gastrointestinal: No abdominal pain, No constipation, No diarrhea, No nausea, No vomiting Genitourinary: No dysuria, No frequency Musculoskeletal: back pain Skin: see HPI Psychiatric/Neurological: Headache; Denies Numbness, Denies Tingling Physical Exam Physical Exam Vital Signs Vital Signs - First Documented 07/11/20 07/11/20 01:58 04:57 Temp 35.5 Pulse 95 Resp 16 B/P (MAP) 113/85 (94) Pulse Ox 97 O2 Delivery Room Air Capillary Refill : Less Than 3 Seconds Height, Weight, BMI Height: 5'2.00" Weight: 160lbs. oz. 72.320992eq; 32.29 BMI Method:Stated General Appearance: No Apparent Distress, WD/WN Eyes: Bilateral Eye PERRL, Bilateral Eye EOMI HEENT: PERRL/EOMI, Pharynx Normal; No Pharyngeal Erythema, No Tonsillar Exudate Neck: Non Tender, Supple Respiratory: Lungs Clear, Normal Breath Sounds, No Accessory Muscle Use, No Respiratory Distress Cardiovascular: Regular Rate, Rhythm, No Edema, No Murmur, Normal Peripheral Pulses Gastrointestinal: Normal Bowel Sounds, Non Tender, Soft; No Guarding, No Rebound Extremity: Normal Capillary Refill, Non Tender, No Calf Tenderness, No Pedal Edema Neurologic/Psychiatric: Oriented x3, Other (Drowsy) Skin: Normal Color, Warm/Dry, Other (R foot plantar surface wound) Results Results/Procedures Labs Laboratory Tests 07/11/20 02:41 07/11/20 06:30 Patient resulted labs reviewed. Assessment/Plan Assessment and Plan Assessment: Cellulitis R foot Mild leukocytosis Illicit drug use 8 weeks gestation Plan: Started on vanc and Zosyn Continue IV fluids SCD's and Lovenox for DVT prophylaxis Clinical Quality Measures DVT/VTE Risk/Contraindication: Risk Factor Score Per Nursin RFS Level Per Nursing on Admit: 3=High JENNIFER ZIMMER,MED STUDENT Jul 11, 2020 09:00
[2020-07-11] MEDS ORDERED: ALPR1TAB7 PO (10:00)
[2020-07-11] MEDS ORDERED: PIPERACILLIN/TAZO 4.5 GM/NS 100 ML IV SCH ×2 (10:00)
[2020-07-11] MEDS ORDERED: IBUP-2473 PO (10:00)
[2020-07-11] MEDS ORDERED: CARI1.5C PO (10:00)
[2020-07-11] MEDS ORDERED: ACET-2267 PO (10:00)
--- NOTE | 2020-07-11 10:00 | NUR ---
SPOKE WITH THE PT (I CALLED HER ROOM PHONE) AND CALLED SHIRA TO COMPLETE THE MED REC ON 07-03-2020 THE PT FILLED THE FOLLOWING MEDS AT [facility]: ALPRAZOLAM 1MG #56/28DS VRAYLAR 1.5MG #30/30DS OTC MEDS: TYLENOL IBUPROFEN
--- NOTE | 2020-07-11 10:36 | NUR ---
CM/SS: Visited with pt as per plan for discharge and it was noted that pt is and using illegal drugs Plan: Undetermined at this time - pt is from home and will likely return there Summary: Pt is in bed at the time of the visit. Pt reports that her foot just started off as cracking and it has gotten worst. Pt reports that she has been seen previously at [facility] as well as being a pt of Dr Fierro. Pt has not had regular medical care. Pt has a 7 month old child and an possibly another child, she seems vague when asked. Pt reports she is also seen at [facility] for mental health reasons, and that she gets her psychotropic medications from there. Pt is asked about being and also about her drug use. Pt denies using drugs at the present, and reports she has in the past. Pt is educated about getting medical care during her as well as not using illegal drugs. Shortly after being asked, pt reports she needs to leave today, as she has things she needs to take care of. When asked, she reports that she has kids, and she needs to move and take care of things. She is reminded that she may have to stay here longer. Pt is not pleased with that and is encouraged that doctor will be rounding soon. Osei, RN comes in and shares with pt that he needs to give her more medicine to help her foot. Pt seems calmer and request a fruit cup. This worker gets her a fruit cup and pt seems ok with that. This worker updated physician on pt wanting to leave and the other issues. This worker will follow up.
[2020-07-11] MEDS ORDERED: NS IV 1000 ML 1,000 ML ONE (11:45)
[2020-07-11 12:00] VITALS: BP 106/65
--- NOTE | 2020-07-11 12:22 | NUR ---
CM/SS: Protective Services Report completed #[id number] based on pt is currently , and has been using illegal drugs - potential harm to the unborn fetus.
[2020-07-11] MEDS ORDERED: FOLI0.8T PO (12:48)
[2020-07-11] MEDS ORDERED: AMOX-358 PO (12:48)
--- NOTE | 2020-07-11 12:48 | Discharge Summary ---
Diagnosis/Chief Complaint Date of Admission Jul 11, 2020 at 04:20 Date of Discharge Discharge Date: Jul 11, 2020 Discharge Diagnosis Right foot wound MARTINA Discharge Summary Discharge Physical Examination Allergies: Coded Allergies: aripiprazole (Verified Allergy, Severe, ANAPHYLAXIS, 11/08/19) ketorolac (Verified Allergy, Severe, TONGUE SWELLING, pt has received Ibuprofen, 11/15/19) latex (Verified Allergy, Mild, RASH, 11/08/19) Vitals & I&Os Vital Signs Date Time Temp Pulse Resp B/P (MAP) Pulse Ox O2 Delivery O2 Flow Rate FiO2 07/11/20 12:00 36.8 80 18 106/65 (79) 97 Room Air Hospital Course Was the Problem List Reviewed?: Yes Short course after admitted she was given IVF and IV abx for right foot wound with cellulitis. Dr Aguirre consulted. UDS + for multiple meds. Right foot woun appeared rapidly improved and she was deemed stable for DC as she insisted on PO abx. Labs (last 24 hrs) Laboratory Tests 07/11/20 02:10: Urine Color YELLOW, Urine Clarity CLEAR, Urine pH 6.0, Urine Specific [place] >=1.030, Urine Protein NEGATIVE, Urine Glucose (UA) NEGATIVE, Urine Ketones NEGATIVE, Urine Nitrite NEGATIVE, Urine Bilirubin NEGATIVE, Urine Urobilinogen 0.2, Urine Leukocyte Esterase NEGATIVE, Urine RBC (Auto) TRACE-I, Urine RBC 0-2, Urine WBC 0-2, Urine Squamous Epithelial Cells 5-10, Urine Crystals PRESENTH, Urine Calcium Oxalate Crystals FEWH, Urine Amorphous Sediment RARE BROOKE URATESH, Urine Bacteria TRACE, Urine Casts NONE, Urine Mucus MODERATEH, Urine Culture Indicated NO, Urine Opiates Screen NEGATIVE, Urine Oxycodone Screen NEGATIVE, Urine Methadone Screen NEGATIVE, Urine Propoxyphene Screen NEGATIVE, Urine Barbiturates Screen NEGATIVE, Ur Tricyclic Antidepressants Screen NEGATIVE, Urine Phencyclidine Screen NEGATIVE, Urine Amphetamines Screen POSITIVEH, Urine Methamphetamines Screen POSITIVEH, Urine Benzodiazepines Screen POSITIVEH, Urine Cocaine Screen NEGATIVE, Urine Cannabinoids Screen POSITIVEH 07/11/20 02:41: White Blood Count 12.9H, Red Blood Count 4.27, Hemoglobin 13.3, Hematocrit 40, Mean Corpuscular Volume 93, Mean Corpuscular Hemoglobin 31, Mean Corpuscular Hemoglobin Concent 34, Red Cell Distribution Width 12.3, Platelet Count 328, Mean Platelet Volume 9.6, Immature Granulocyte % (Auto) 0, Neutrophils (%) (Auto) 69, Lymphocytes (%) (Auto) 20, Monocytes (%) (Auto) 5, Eosinophils (%) (Auto) 6, Basophils (%) (Auto) 1, Neutrophils # (Auto) 8.8H, Lymphocytes # (Auto) 2.6, Monocytes # (Auto) 0.6, Eosinophils # (Auto) 0.7H, Basophils # (Auto) 0.1, Immature Granulocyte # (Auto) 0.0, Erythrocyte Sedimentation Rate 17, Sodium Level 140, Potassium Level 3.8, Chloride Level 103, Carbon Dioxide Level 25, Anion Gap 12, Blood Urea Nitrogen 12, Creatinine 0.73, Estimat Glomerular Filtration Rate > 60, BUN/Creatinine Ratio 16, Glucose Level 78, Lactic Acid Level 1.36, Calcium Level 9.1, Corrected Calcium 9.2, Total Bilirubin 0.1, Aspartate Amino Transf (AST/SGOT) 17, Alanine Aminotransferase (ALT/SGPT) 60H, Alkaline Phosphatase 87, C-Reactive Protein High Sensitivity 0.36, Total Protein 6.7, Albumin 3.9, Procalcitonin 0.02, Human Chorionic Gonadotropin, Quant [id number] 07/11/20 06:30: White Blood Count 12.0H, Red Blood Count 4.07, Hemoglobin 12.7, Hematocrit 38, Mean Corpuscular Volume 94, Mean Corpuscular Hemoglobin 31, Mean Corpuscular Hemoglobin Concent 33, Red Cell Distribution Width 12.3, Platelet Count 301, Mean Platelet Volume 9.7, Immature Granulocyte % (Auto) 0, Neutrophils (%) (Auto) 68, Lymphocytes (%) (Auto) 21, Monocytes (%) (Auto) 5, Eosinophils (%) (Auto) 5, Basophils (%) (Auto) 0, Neutrophils # (Auto) 8.2H, Lymphocytes # (Auto) 2.5, Monocytes # (Auto) 0.6, Eosinophils # (Auto) 0.6H, Basophils # (Auto) 0.1, Immature Granulocyte # (Auto) 0.1, Sodium Level 138, Potassium Level 3.9, Chloride Level 110H, Carbon Dioxide Level 18L, Anion Gap 10, Blood Urea Nitrogen 11, Creatinine 0.63, Estimat Glomerular Filtration Rate > 60, BUN/Creatinine Ratio 17, Glucose Level 94, Calcium Level 8.3L, Corrected Calcium 8.8, Total Bilirubin 0.2, Aspartate Amino Transf (AST/SGOT) 18, Alanine Aminotransferase (ALT/SGPT) 53, Alkaline Phosphatase 75, Total Protein 5.9L, Albumin 3.4 Microbiology 07/11/20 Gram Stain - Final, Resulted 07/11/20 Wound Culture, Resulted Pending Pending Labs Microbiology Date/Time Source Procedure Growth Status 07/11/20 02:05 Ulcer Foot, Right Gram Stain - Final Resulted 07/11/20 02:05 Ulcer Foot, Right Wound Culture Pending Resulted Laboratory Tests 07/11/20 02:10: Urine Color YELLOW, Urine Clarity CLEAR, Urine pH 6.0, Urine Specific [place] >=1.030, Urine Protein NEGATIVE, Urine Glucose (UA) NEGATIVE, Urine Ketones NEGATIVE, Urine Nitrite NEGATIVE, Urine Bilirubin NEGATIVE, Urine Urobilinogen 0.2, Urine Leukocyte Esterase NEGATIVE, Urine RBC (Auto) TRACE-I, Urine RBC 0-2, Urine WBC 0-2, Urine Squamous Epithelial Cells 5-10, Urine Crystals PRESENT, Urine Calcium Oxalate Crystals FEW, Urine Amorphous Sediment [place] URATES, Urine Bacteria TRACE, Urine Casts NONE, Urine Mucus MODERATE, Urine Culture Indicated NO, Urine Opiates Screen NEGATIVE, Urine Oxycodone Screen NEGATIVE, Urine Methadone Screen NEGATIVE, Urine Propoxyphene Screen NEGATIVE, Urine Barbiturates Screen NEGATIVE, Ur Tricyclic Antidepressants Screen NEGATIVE, Urine Phencyclidine Screen NEGATIVE, Urine Amphetamines Screen POSITIVE, Urine Methamphetamines Screen POSITIVE, Urine Benzodiazepines Screen POSITIVE, Urine Cocaine Screen NEGATIVE, Urine Cannabinoids Screen POSITIVE 07/11/20 02:41: White Blood Count 12.9, Red Blood Count 4.27, Hemoglobin 13.3, Hematocrit 40, Mean Corpuscular Volume 93, Mean Corpuscular Hemoglobin 31, Mean Corpuscular H emoglobin Concent 34, Red Cell Distribution Width 12.3, Platelet Count 328, Mean Platelet Volume 9.6, Immature Granulocyte % (Auto) 0, Neutrophils (%) (Auto) 69, Lymphocytes (%) (Auto) 20, Monocytes (%) (Auto) 5, Eosinophils (%) (Auto) 6, Basophils (%) (Auto) 1, Neutrophils # (Auto) 8.8, Lymphocytes # (Auto) 2.6, Monocytes # (Auto) 0.6, Eosinophils # (Auto) 0.7, Basophils # (Auto) 0.1, Immature Granulocyte # (Auto) 0.0, Erythrocyte Sedimentation Rate 17, Sodium Level 140, Potassium Level 3.8, Chloride Level 103, Carbon Dioxide Level 25, Anion Gap 12, Blood Urea Nitrogen 12, Creatinine 0.73, Estimat Glomerular Filtration Rate > 60, BUN/Creatinine Ratio 16, Glucose Level 78, Lactic Acid Level 1.36, Calcium Level 9.1, Corrected Calcium 9.2, Total Bilirubin 0.1, Aspartate Amino Transf (AST/SGOT) 17, Alanine Aminotransferase (ALT/SGPT) 60, Alkaline Phosphatase 87, C-Reactive Protein High Sensitivity 0.36, Total Protein 6.7, Albumin 3.9, Procalcitonin 0.02, Human Chorionic Gonadotropin, Quant [id number] 07/11/20 06:30: White Blood Count 12.0, Red Blood Count 4.07, Hemoglobin 12.7, Hematocrit 38, Mean Corpuscular Volume 94, Mean Corpuscular Hemoglobin 31, Mean Corpuscular Hemoglobin Concent 33, Red Cell Distribution Width 12.3, Platelet Count 301, Sheela n Platelet Volume 9.7, Immature Granulocyte % (Auto) 0, Neutrophils (%) (Auto) 68, Lymphocytes (%) (Auto) 21, Monocytes (%) (Auto) 5, Eosinophils (%) (Auto) 5, Basophils (%) (Auto) 0, Neutrophils # (Auto) 8.2, Lymphocytes # (Auto) 2.5, Monocytes # (Auto) 0.6, Eosinophils # (Auto) 0.6, Basophils # (Auto) 0.1, Immature Granulocyte # (Auto) 0.1, Sodium Level 138, Potassium Level 3.9, Chloride Level 110, Carbon Dioxide Level 18, Anion Gap 10, Blood Urea Nitrogen 11, Creatinine 0.63, Estimat Glomerular Filtration Rate > 60, BUN/Creatinine Ratio 17, Glucose Level 94, Calcium Level 8.3, Corrected Calcium 8.8, Total Bilirubin 0.2, Aspartate Amino Transf (AST/SGOT) 18, Alanine Aminotransferase (ALT/SGPT) 53, Alkaline Phosphatase 75, Total Protein 5.9, Albumin 3.4 Discharge Home Medications: Active Scripts Active Folic Acid 0.8 Mg Tablet 0.8 Mg PO DAILY Augmentin 875-125 Tablet (Amoxicillin/Potassium Clav) 1 Each Tablet 1 Each PO BID Reported Tylenol Extra Strength (Acetaminophen) 500 Mg Tablet 1,000 Mg PO Q6H PRN Instructions to patient/family Please see electronic discharge instructions given to patient. Clinical Quality Measures DVT/VTE Risk/Contraindication: Risk Factor Score Per Nursin RFS Level Per Nursing on Admit: 3=High ILIANA FLORES DO Jul 11, 2020 12:48
--- NOTE | 2020-07-11 13:23 | NUR ---
"RD ASSESSMENT PMHx: HTN; GERD; polysubstance (methamphetamine; THC; ETOH; tobacco) PT INTERACTION: Pt was awake and pleasant during nutrition assessment. Pt states current appetite is good. Note PO intake 100% x1meal, per chart review. Note pt is currently 8w gestation. Pt states she isn't sure if she has been gaining wt appropriately, as she has not been to an OB-[facility] at this time. Note recent 7# wt gain x2mon, per chart review. Pt states following a regular diet at home, and has no issues with chewing/swallowing food. Pt states no recent issues with nausea, vomiting, constipation, or diarrhea, and that her last BM was 10/. Note pt not currently on bowel regimen per chart review. Note presence of wound (R foot), per chart review. ABNORMAL NUTRITION-RELATED LAB VALUES LOW: Ca 8.3; Pro 5.9 HIGH: Cl 110 Est. kcal needs: 1600 kcal | 20 kcal/kg Est. Pro needs: 96 g Pro | 1.2 g Pro/kg PES STATEMENT: Inadequate protein intake ([id number]) related to increased protein needs as evidenced by presence of wound (R foot) INTERVENTION: Continue with current diet order of Regular diet. Add Ensure HP (vary) to meals TID. Provides 160 kcal and 16 g Pro per serving, for perceived benefit to wound healing. Will continue to follow and reassess as pt needs, intake, and status change. Kofi Hess, MS RD LD"
--- NOTE | 2020-07-11 16:23 | Consultation - Surgery ---
History of Present Illness History of Present Illness Patient Consulted On(belem/time) 07/11/20 12:17 Date Seen by Provider: Jul 11, 2020 Time Seen by Provider: 12:17 History of Present Illness consult requested by Dr. Wilson for right foot wound Patient is a 40-year-old female who states that she developed a crack on her foot about 2 to 3 weeks ago. Patient states that she was seen at [facility] and was provided antibiotics. Patient states that this continued to grow in size and for more of a blister. She states that it was getting bigger and started to begin draining fluid. She has a burning type pain within this area worse with walking on it or when the area is touched. Patient states there was redness but this is has improved patient also is 8 weeks she denies any illicit drug use however drug screen is positive. Patient wanting to go home with this time. She denies any nausea vomiting fever sweats chills shortness of breath or chest pain. Allergies and Home Medications Allergies Coded Allergies: aripiprazole (Verified Allergy, Severe, ANAPHYLAXIS, 11/08/19) ketorolac (Verified Allergy, Severe, TONGUE SWELLING, pt has received Ibuprofen, 11/15/19) latex (Verified Allergy, Mild, RASH, 11/08/19) Home Medications Acetaminophen 500 Mg Tablet, 1,000 MG PO Q6H PRN for PAIN-MILD (1-4), (Reported) Amoxicillin/Potassium Clav 1 Each Tablet, 1 EACH PO BID Prescribed by: ILIANA FLORES on 07/11/20 1248 Folic Acid 0.8 Mg Tablet, 0.8 MG PO DAILY Prescribed by: ILIANA FLORES on 07/11/20 1248 Patient Home Medication List Home Medication List Reviewed: Yes Past Ixdnzyl-[id number]-Kwqqzy Hx Patient Social History Alcohol Use: Occasionally Uses Number of Drinks Today: AA Recreational Drug Use: Yes (HX OF IV METH USE) Drug of Choice: HX OF IV METH USE Smoking Status: Current Everyday Smoker (1 PPD) Type Used: Cigarettes 2nd Hand Smoke Exposure: Yes Recent Foreign Travel: No Contact w/Someone Who Travel: No Recent Infectious Disease Expo: No Recent Hopitalizations: No Immunizations Up To Date Tetanus Booster (TDap): Unknown Date of Influenza Vaccine: Oct 18, 2019 Seasonal Allergies Seasonal Allergies: Yes Surgeries History of Surgeries: Yes (URETHRAL DILATION X 2; X 2, NECK SURGERY) Surgeries: Adenoidectomy, Bladder Surgery, Section, Tonsillectomy Respiratory History of Respiratory Disorde: Yes Respiratory Disorders: Asthma Cardiovascular History of Cardiac Disorders: Yes Cardiac Disorders: Hypertension Neurological History of Neurological Disord: Yes Neurological Disorders: Headaches /Migraines 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 System : Yes Hx 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 Disorders: No Sexually Transmitted Disease: Yes (GENITAL HERPES) HIV/AIDS: No Female 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 Genitourinary History of Genitourinary Disor: Yes Genitourinary Disorders: Bladder Infection Gastrointestinal History of Gastrointestinal Di: Yes Gastrointestinal Disorders: Gastroesophageal Reflux Musculoskeletal History of Musculoskeletal Dis: Yes (CHRONIC NECK PAIN ) Musculoskeletal Disorders: Degenerate Disk Disease, Chronic Back Pain Endocrine History of Endocrine Disorders: No HEENT History of HEENT Disorders: No Loss of Vision: Denies Hearing Impairment: Denies Cancer History of Cancer: No Psychosocial History of Psychiatric Problem: Yes (SUBSTANCE ABUSE) Behavioral Health Disorders: Anxiety, Bipolar, Schizophrenia, Depression Integumentary History of Skin or Integumenta: Yes (MRSA) Blood Transfusions History of Blood Disorders: No Adverse Reaction to a Blood Tr: No (N/A) Family Medical History Significant Family History: No Pertinent Family Hx Family Medial History: Asthma 19 FATHER FH: COPD (chronic obstructive pulmonary disease) 19 FATHER FH: bladder cancer 19 FATHER FH: emphysema 19 FATHER Psychosocial problem 19 FATHER 19 MOTHER G8 BROTHER G8 SISTER Review of Systems-General Constitutional: No chills, No diaphoresis EENTM: No blurred vision, No double vision Respiratory: No cough, No dyspnea on exertion Cardiovascular: No chest pain, No edema Gastrointestinal: No abdominal pain, No nausea, No vomiting Genitourinary: No decreased output, No dysuria Musculoskeletal: No back pain, No joint pain Skin: other (Right plantar foot wound) Psychiatric/Neurological: Denies Anxiety, Denies Depressed, Denies Emotional Problems All Other Systems Reviewed Negative Unless Noted: Yes (Negative excepted noted.) Physical Exam-General Problems Physical Exam Vital Signs Vital Signs - First Documented 07/11/20 07/11/20 01:58 04:57 Temp 35.5 Pulse 95 Resp 16 B/P (MAP) 113/85 (94) Pulse Ox 97 O2 Delivery Room Air Capillary Refill : Less Than 3 SecondsLess Than 3 Seconds General Appearance: WD/WN, no apparent distress HEENT: PERRL/EOMI, normal ENT inspection Neck: non-tender, supple Respiratory: chest non-tender, no respiratory distress, no accessory muscle use Cardiovascular: regular rate, rhythm, no edema Gastrointestinal: non tender, soft Rectal: deferred Back: no CVA tenderness, no vertebral tenderness Extremities: other (Right plantar surface open wound with blistering total surface area approximately 4 x 6 cm no purulence.) Neurologic/Psychiatric: alert, normal mood/affect, oriented x 3 Skin: normal color, warm/dry, other (Wound right foot as noted above no surrounding erythema at this time.) Lymphatic: no adenopathy Data Review Labs Laboratory Tests 07/11/20 02:10: Urine Color YELLOW, Urine Clarity CLEAR, Urine pH 6.0, Urine Specific [place] >=1.030, Urine Protein NEGATIVE, Urine Glucose (UA) NEGATIVE, Urine Ketones NEGATIVE, Urine Nitrite NEGATIVE, Urine Bilirubin NEGATIVE, Urine Urobilinogen 0.2, Urine Leukocyte Esterase NEGATIVE, Urine RBC (Auto) TRACE-I, Urine RBC 0-2, Urine WBC 0-2, Urine Squamous Epithelial Cells 5-10, Urine Crystals PRESENTH, Urine Calcium Oxalate Crystals FEWH, Urine Amorphous Sediment RARE [place] URATESH, Urine Bacteria TRACE, Urine Casts NONE, Urine Mucus MODERATEH, Urine Culture Indicated NO, Urine Opiates Screen NEGATIVE, Urine Oxycodone Screen NEGATIVE, Urine Methadone Screen NEGATIVE, Urine Propoxyphene Screen NEGATIVE, Urine Barbiturates Screen NEGATIVE, Ur Tricyclic Antidepressants Screen NEGATIVE, Urine Phencyclidine Screen NEGATIVE, Urine Amphetamines Screen POSITIVEH, Urine Methamphetamines Screen POSITIVEH, Urine Benzodiazepines Screen POSITIVEH, Urine Cocaine Screen NEGATIVE, Urine Cannabinoids Screen POSITIVEH 07/11/20 02:41: White Blood Count 12.9H, Red Blood Count 4.27, Hemoglobin 13.3, Hematocrit 40, Mean Corpuscular Volume 93, Mean Corpuscular Hemoglobin 31, Mean Corpuscular Hemoglobin Concent 34, Red Cell Distribution Width 12.3, Platelet Count 328, Mean Platelet Volume 9.6, Immature Granulocyte % (Auto) 0, Neutrophils (%) (Auto) 69, Lymphocytes (%) (Auto) 20, Monocytes (%) (Auto) 5, Eosinophils (%) (Auto) 6, Basophils (%) (Auto) 1, Neutrophils # (Auto) 8.8H, Lymphocytes # (Auto) 2.6, Monocytes # (Auto) 0.6, Eosinophils # (Auto) 0.7H, Basophils # (Auto) 0.1, Immature Granulocyte # (Auto) 0.0, Erythrocyte Sedimentation Rate 17, Sodium Level 140, Potassium Level 3.8, Chloride Level 103, Carbon Dioxide [place] 25, Anion Gap 12, Blood Urea Nitrogen 12, Creatinine 0.73, Estimat Glomerular Filtration Rate > 60, BUN/Creatinine Ratio 16, Glucose Level 78, Lactic Acid Level 1.36, Calcium Level 9.1, Corrected Calcium 9.2, Total Bilirubin 0.1, Aspartate Amino Transf (AST/SGOT) 17, Alanine Aminotransferase (ALT/SGPT) 60H, Alkaline Phosphatase 87, C-Reactive Protein High Sensitivity 0.36, Total Protein 6.7, Albumin 3.9, Procalcitonin 0.02, Human Chorionic Gonadotropin, Quant [id number] 07/11/20 06:30: White Blood Count 12.0H, Red Blood Count 4.07, Hemoglobin 12.7, Hematocrit 38, Mean Corpuscular Volume 94, Mean Corpuscular Hemoglobin 31, Mean Corpuscular Hemoglobin Concent 33, Red Cell Distribution Width 12.3, Platelet Count 301, Me an Platelet Volume 9.7, Immature Granulocyte % (Auto) 0, Neutrophils (%) (Auto) 68, Lymphocytes (%) (Auto) 21, Monocytes (%) (Auto) 5, Eosinophils (%) (Auto) 5, Basophils (%) (Auto) 0, Neutrophils # (Auto) 8.2H, Lymphocytes # (Auto) 2.5, Monocytes # (Auto) 0.6, Eosinophils # (Auto) 0.6H, Basophils # (Auto) 0.1, Immature Granulocyte # (Auto) 0.1, Sodium Level 138, Potassium Level 3.9, Chloride Level 110H, Carbon Dioxide Level 18L, Anion Gap 10, Blood Urea Nitrogen 11, Creatinine 0.63, Estimat Glomerular Filtration Rate > 60, BUN/Creatinine Ratio 17, Glucose Level 94, Calcium Level 8.3L, Corrected Calcium 8.8, Total Bilirubin 0.2, Aspartate Amino Transf (AST/SGOT) 18, Alanine Aminotransferase (ALT/SGPT) 53, Alkaline Phosphatase 75, Total Protein 5.9L, Albumin 3.4 Assessment/Plan Assessment/Plan Assessment/Plan Right foot wound 8 weeks Illicit drug use-determined by drug screen Patient to continue with local wound care. At this time the area does not appear to be infected would use a nonadhesive bandage and continue to monitor closely. Patient will have follow-up in approximately 1 to 2 weeks if any issues before before that be seen at that time. Complete all antibiotics Patient encouraged to wear good footwear and change the bandage at least daily and as needed. Clinical Quality Measures DVT/VTE Risk/Contraindication: Risk Factor Score Per Nursin RFS Level Per Nursing on Admit: 3=High CHASE WILL DO Jul 11, 2020 16:22
[2020-07-11] MEDS ORDERED: VANCOMYCIN 1250 MG/NS 250 ML IVPB IV SCH ×2 (20:00)
[2020-07-12] MEDS ORDERED: TROUGH ORDER-PHARMACY XX NR ×2 (07:00→19:00)
== END 2020-07-11 13:00 | disposition home or self-care (01) | DRG 832 ==
LOC: EDUNIT# 00:40 → ER 00:43 → 4TH 04:20
PROVIDERS: ADMIT Internal Medicine; ATTEND Internal Medicine
DX: O98.811 Other maternal infectious and parasitic diseases complicating pregnancy, first trimester (principal); L03.115 Cellulitis of right lower limb; O99.321 Drug use complicating pregnancy, first trimester; O26.41 Herpes gestationis, first trimester; F15.10 Other stimulant abuse, uncomplicated; F12.10 Cannabis abuse, uncomplicated; F19.10 Other psychoactive substance abuse, uncomplicated; O99.331 Smoking (tobacco) complicating pregnancy, first trimester; F17.210 Nicotine dependence, cigarettes, uncomplicated; O99.341 Other mental disorders complicating pregnancy, first trimester; F41.9 Anxiety disorder, unspecified; F31.9 Bipolar disorder, unspecified; F20.9 Schizophrenia, unspecified; O99.511 Diseases of the respiratory system complicating pregnancy, first trimester; J45.909 Unspecified asthma, uncomplicated; K21.9 Gastro-esophageal reflux disease without esophagitis; M54.9 Dorsalgia, unspecified; B95.62 Methicillin resistant Staphylococcus aureus infection as the cause of diseases classified elsewhere; Z3A.08 8 weeks gestation of pregnancy; Z90.89 Acquired absence of other organs; Z23 Encounter for immunization
CPT/HCPCS: 36415; 73630; 80053; 80306; 81000; 83605; 84145; 84702; 85025; 85652; 86141; 87040; 87070; 87077; 87205; 90686; 90715

== ENCOUNTER → 2020-07-22 | Outpatient (CLI) | payer MEDICARE, MEDICAID ==
[~2020-07-22] MED LIST changes: +ACET-2267 PO; +ALPR1TAB7 PO; +AMOX-358 PO; +CARI1.5C PO; +FOLI0.8T PO; +IBUP-2473 PO
== END ==
LOC: WOUNDCARE 13:43
PROVIDERS: ATTEND Surgery
DX: O26.90 Pregnancy related conditions, unspecified, unspecified trimester (principal); I96 Gangrene, not elsewhere classified; L30.1 Dyshidrosis [pompholyx]; F15.10 Other stimulant abuse, uncomplicated
CPT/HCPCS: 99213

== ENCOUNTER → 2020-10-02 | Outpatient (CLI) | payer MEDICARE, MEDICAID ==
--- NOTE | 2020-10-03 08:24 | Diagnostic Imaging Report ---
INDICATION: survey. TECHNIQUE: Multiple real-time grayscale images were obtained over the gravid uterus. COMPARISON: None FINDINGS: There is a single live fetus in a cephalic presentation. heart rate was recorded at 152 bpm. Placenta is posterior. Amniotic fluid index is 11.8 cm. No placenta previa is identified. A survey demonstrates kidneys, bladder and stomach are unremarkable. brain is unremarkable. There is a 4 chamber heart. Three-vessel cord with normal cord insertion. spine is unremarkable. Biometrical measurements are as follows: Biparietal 4.76 cm, age 20 weeks 3 days. Head circumference 18.08 cm, age 20 weeks 4 days. Abdominal circumference 16.49 cm, age 21 weeks 4 days. Femur length 3.35 cm, age 20 weeks 4 days. Sonographic estimate age: 20 weeks 6 days. Sonographic estimated date of delivery: 02/13/2021. Estimated Weight: 391 gm (+/- 57 gm). LMP percentile: 83%. heart rate: 152 beats per minute. number: 1 of 1. IMPRESSION: Single live IUP 20 weeks 6 days gestational age. Estimated date of confinement sonographically is 02/13/2021. Dictated by: Dictated on workstation # [id number]
== END ==
LOC: RAD 15:36
PROVIDERS: ATTEND Obstetrics & Gynecology
DX: Z34.92 Encounter for supervision of normal pregnancy, unspecified, second trimester (principal); Z3A.20 20 weeks gestation of pregnancy
CPT/HCPCS: 76805

== ENCOUNTER 2021-01-28 11:50 | Outpatient (CLI) | payer MEDICARE, MEDICAID ==
[~2021-01-28 11:50] MED LIST changes: -FOLI0.8T PO; +FOLI0.8T4 PO
[2021-01-28 12:16] LABS: BILIRUBIN,URINE NEGATIVE (NEGATIVE); CLARITY,URINE CLEAR; COLOR,URINE YELLOW; GLUCOSE, URINE (UA) NEGATIVE (NEGATIVE); KETONES,URINE NEGATIVE (NEGATIVE); LEUKOCYTE ESTERASE ,URINE NEGATIVE (NEGATIVE); NITRITE,URINE NEGATIVE (NEGATIVE); PH,URINE 6.5 (5-9); PROTEIN,URINE NEGATIVE (NEGATIVE)
[2021-01-28] MEDS ORDERED: PREN-37 PO (12:20)
[2021-01-28 12:23] VITALS: BP 123/73
[2021-01-28 12:28] LABS: BACTERIA,URINE FEW /HPF
--- NOTE | 2021-01-29 08:40 | Physician Query-Final Dx ---
RYLAN SALVADOR 01/29/21 0840: Clinic Account Progress/Dx Physician Query: Please give diagnosis Please include # weeks gestation Date of Service Jan 28, 2021 at 11:50 SWATI DONG DO 01/29/21 1803: Clinic Account Progress/Dx DIAGNOSIS: Diagnosis 37 week gestation swelling of hands and feet RYLAN SALVADOR Jan 29, 2021 08:40 SWATI DONG DO Jan 29, 2021 18:03
== END 2021-01-28 14:45 | disposition home or self-care (01) ==
LOC: WSo 11:50 → LDRP 11:52 → WSo 14:45
PROVIDERS: ATTEND Obstetrics & Gynecology
DX: O26.893 Other specified pregnancy related conditions, third trimester (principal); M79.89 Other specified soft tissue disorders; Z3A.37 37 weeks gestation of pregnancy
CPT/HCPCS: 81000; G0463; 99213

== ENCOUNTER 2021-02-02 16:12 | Outpatient (CLI) | payer MEDICARE, MEDICAID ==
[~2021-02-02] VITALS: Ht 161 cm; Wt 102.7 kg
[~2021-02-02 16:12] MED LIST changes: +PREN-37 PO
[2021-02-02 16:40] VITALS: BP 136/82
[2021-02-02 17:12] LABS: BILIRUBIN,URINE NEGATIVE (NEGATIVE); COLOR,URINE YELLOW; GLUCOSE, URINE (UA) NEGATIVE (NEGATIVE); KETONES,URINE NEGATIVE (NEGATIVE); LEUKOCYTE ESTERASE ,URINE NEGATIVE (NEGATIVE); NITRITE,URINE NEGATIVE (NEGATIVE); PH,URINE 6.5 (5-9); PROTEIN,URINE NEGATIVE (NEGATIVE)
[2021-02-02 17:21] LABS: BACTERIA,URINE FEW /HPF; CLARITY,URINE SL CLOUDY; WBC,URINE 0-2 /HPF
[2021-02-02 17:24] LABS: AMPHETAMINE SCREEN, URINE NEGATIVE (NEGATIVE); BARBITURATE SCREEN URINE NEGATIVE (NEGATIVE); BENZODIAZEPINES SCREEN URINE NEGATIVE (NEGATIVE); CANNABINOID SCREEN, URINE NEGATIVE (NEGATIVE); COCAINE SCREEN URINE NEGATIVE (NEGATIVE); METHADONE STAT NEGATIVE (NEGATIVE); METHAMPHETAMINE SCREEN URINE S NEGATIVE (NEGATIVE); OPIATE SCREEN URINE NEGATIVE (NEGATIVE); OXYCODONE STAT NEGATIVE (NEGATIVE); PROPOXYPHENE STAT NEGATIVE (NEGATIVE); TRICYCLIC ANTIDEPRESSANTS SCRE NEGATIVE (NEGATIVE)
[2021-02-02 18:20] VITALS: BP 136/82
--- NOTE | 2021-02-03 08:29 | Physician Query-Final Dx ---
RYLAN SALVADOR 02/03/21 0829: Clinic Account Progress/Dx Physician Query: Please give diagnosis Please include # weeks gestation Date of Service February 02, 2021 at 16:12 CLAIRE DESAI DO 02/04/21 0829: Clinic Account Progress/Dx DIAGNOSIS: Diagnosis 37 week IUP Previous Back pain RYLAN SALVADOR February 03, 2021 08:29 CLAIRE DESAI DO February 04, 2021 08:29
== END 2021-02-02 18:20 | disposition home or self-care (01) ==
LOC: WSo 16:12 → LDRP 16:12 → WSo 18:20
PROVIDERS: ATTEND Obstetrics & Gynecology
DX: O26.893 Other specified pregnancy related conditions, third trimester (principal); Z3A.37 37 weeks gestation of pregnancy
CPT/HCPCS: 80306; 81000; 87088; G0463; 99213

== ENCOUNTER 2021-02-04 10:44 | Outpatient (CLI) | payer MEDICARE, MEDICAID ==
[~2021-02-04] VITALS: Ht 157.5 cm; Wt 101.8 kg
[2021-02-04] MEDS ORDERED: CYCL10TA9 PO (15:55)
== END 2021-02-04 16:03 | disposition home or self-care (01) ==
LOC: PREOP 10:44
PROVIDERS: ATTEND Obstetrics & Gynecology
DX: Z01.818 Encounter for other preprocedural examination (principal)

== ENCOUNTER 2021-02-08 10:54 | Inpatient (IN) | payer MEDICARE, MEDICAID ==
[~2021-02-08] VITALS: Ht 157.5 cm; Wt 103.6 kg
[2021-02-08] VITALS (11 sets, daily range): BP systolic 99–134; BP diastolic 53–82
[2021-02-08] MEDS ORDERED: LACTATED RINGERS 1,000 ML IV PRN ×3 (12:00→12:30)
[2021-02-08] MEDS ORDERED: ceFAZolin 2 GM IV Premixed 50 ML IV ONE ×2 (12:00→12:30)
[2021-02-08] MEDS ORDERED: METOCLOPRAMIDE INJ 10 MG/2 ML (REGLAN) ONE (12:03)
[2021-02-08] MEDS ORDERED: ceFAZolin 2 GM IV Premixed 50 ML ONE (12:03)
[2021-02-08] MEDS ORDERED: CITRIC ACID/SOB CIT (BICITRA) 30 ML UDC ONE (12:03)
[2021-02-08] MEDS ORDERED: FAMOTIDINE 20MG/2ML IV (PEPCID) ONE (12:04)
[2021-02-08] MEDS ORDERED: fentaNYL INJ 100 MCG/2 ML AMP ONE (12:09)
[2021-02-08] MEDS ORDERED: KETAMINE/NaCl 50 MG/5 ML SYRINGE (ED ONLY) ONE (12:12)
--- NOTE | 2021-02-08 12:22 | History & Physical-OB ---
OB - Chief Complaint & HPI Date/Time Date of Admission: Date of Admission: 02/08/2021 Date seen by a Provider: February 08, 2021 Time Seen by a Provider: 12:19 Chief Complaint/History OB-Reason for Admission/Chief: Rupture of Membranes Hx : 3 Hx Para: 2 Expected Date of Delivery: February 17, 2021 Gestational Age in Weeks: 38 Gestational Age in Days: 5 Indication for : desires repeat Admission Nurse Assessment Rev: Yes Allergies and Home Medications Allergies Coded Allergies: aripiprazole (Verified Allergy, Severe, ANAPHYLAXIS, 11/08/19) ketorolac (Verified Allergy, Severe, TONGUE SWELLING, pt has received Ibuprofen, 11/15/19) latex (Verified Allergy, Mild, RASH, 11/08/19) Home Medications Cyclobenzaprine HCl 10 Mg Tablet, 10 MG PO BID PRN for MUSCLE SPASMS, (Reported) Vit/Iron Fumarate/FA 1 Each Tablet, 1 EACH PO DAILY, (Reported) Patient Home Medication List Home Medication List Reviewed: Yes OB - History Hx of Present Care: Yes (very limited care) Ultrasounds: Normal mid trimester US Obstetrical Complications: None Medical Complications: Other (hx of ilicit drug use) Delivery History Adverse Rxn to Tranfusion: No (N/A) Patient Past Medical History n/a Social History/Family History 2nd Hand Smoke Exposure: Yes Immunizations Tetanus Booster (TDap): Unknown Date of Influenza Vaccine: Oct 18, 2019 OB - Admission Exam Physical Exam HEENT: NCAT Heart: Rhythm Normal Lungs: Clear Abdomen: Gravid Membranes: Ruptured Heart Rate: 130's Accelerations: Accelerations Present Decelerations: No Decelerations Short Term Variability: Present Shelter Variability: Average (6-25) Contractions on Admission: 6-10 Minutes Apart Intensity: Mild OB - Assessment/Plan/Diagnosis Assessment Assessment: section Admission Dx 40 yo @ 38.5 weeks SROM Previous Admission Status: Inpatient Order (span 2 midnights) Reason for Inpatient Admission: Repeat at 38 weeks Plan Plan: Section CLAIRE DESAI DO February 08, 2021 12:22
[2021-02-08] MEDS ORDERED: CITRIC ACID/SOB CIT (BICITRA) 30 ML UDC PO ONE (12:30)
[2021-02-08] MEDS ORDERED: METOCLOPRAMIDE INJ 10 MG/2 ML (REGLAN) IV ONE (12:30)
[2021-02-08] MEDS ORDERED: CATHETER FLUSH 10 ML SYR IV PRN (12:30)
[2021-02-08] MEDS ORDERED: FAMOTIDINE 20MG/2ML IV (PEPCID) IV ONE (12:30)
[2021-02-08 12:32] LABS: BASOPHILS % (AUTO) 0 % (0-10); EOSINOPHILS # (AUTO) 0.1 10^3/uL (0.0-0.3); EOSINOPHILS % (AUTO) 1 % (0-10); HEMATOCRIT 34 % (35-52); HEMOGLOBIN 11.1 g/dL (11.5-16.0); LYMPHOCYTES # (AUTO) 1.8 10^3/uL (1.0-4.0); LYMPHOCYTES % (AUTO) 15 % (12-44); MEAN CORPUSCULAR HEMOGLOBIN 28 pg (25-34); MEAN CORPUSCULAR HGB CONC 33 g/dL (32-36); MEAN CORPUSCULAR VOLUME 87 fL (80-99); MEAN PLATELET VOLUME 11.1 fL (9.0-12.2); MONOCYTES # (AUTO) 0.8 10^3/uL (0.0-1.0); MONOCYTES % (AUTO) 7 % (0-12); NEUTROPHILS # (AUTO) 8.9 10^3/uL (1.8-7.8); NEUTROPHILS % (AUTO) 76 % (42-75); PLATELET COUNT 286 10^3/uL (130-400); WHITE BLOOD COUNT 11.8 10^3/uL (4.3-11.0)
[2021-02-08 12:42] LABS: AMPHETAMINE SCREEN, URINE NEGATIVE (NEGATIVE); BARBITURATE SCREEN URINE NEGATIVE (NEGATIVE); BENZODIAZEPINES SCREEN URINE NEGATIVE (NEGATIVE); CANNABINOID SCREEN, URINE NEGATIVE (NEGATIVE); COCAINE SCREEN URINE NEGATIVE (NEGATIVE); METHADONE STAT NEGATIVE (NEGATIVE); METHAMPHETAMINE SCREEN URINE S NEGATIVE (NEGATIVE); OPIATE SCREEN URINE NEGATIVE (NEGATIVE); OXYCODONE STAT NEGATIVE (NEGATIVE); PROPOXYPHENE STAT NEGATIVE (NEGATIVE); TRICYCLIC ANTIDEPRESSANTS SCRE POSITIVE (NEGATIVE)
[2021-02-08] MEDS ORDERED: OXYTOCIN PRE-MIX DRIP 1,000 ML IV ONE (12:44)
[2021-02-08] MEDS ORDERED: TETANUS,DIPTH,PERTUSS P/F (BOOSTRIX) 0.5 ML VIAL IM SCH (12:45)
[2021-02-08] MEDS ORDERED: KETOROLAC 30 MG/ML VIAL IV SCH (12:45)
[2021-02-08] MEDS ORDERED: MEASLES,MUMPS,RUBELLA 1 EA INJ SC SCH (12:45)
[2021-02-08] MEDS ORDERED: OXYTOCIN PRE-MIX DRIP 500 ML IV SCH (12:45)
[2021-02-08] MEDS ORDERED: ONDANSETRON 4 MG/2 ML (SDV) Z0FRAN IVP PRN (12:45)
--- NOTE | 2021-02-08 12:47 | Discharge Inst-Women's Service ---
Discharge Inst-Women's Serv Depart Medication/Instructions New, Converted or Re-Newed RX: RX on Chart Final Diagnosis POD 2 RLTCS Problems Reviewed?: Yes Consults/Follow Up Additional Follow Up: Yes Orders/Referrals Dr. Omalley in 7-10 days and in 6 weeks Activity Activity: Activity as Tolerated Driving Instructions: No Driving for 1 Week NO SMOKING: NO SMOKING Nothing Inside Vagina: No Douching, No [place], No Tampons Diet Discharge Diet: No Restrictions Symptoms to Report to : Bleeding Excessive, Pain Increased, Fever Over 101 Degrees F, Vaginal Bleeding Increase, Questions/Concerns For Any Problems or Questions: Contact Your Physician Skin/Wound Care Infection Signs and Symptoms: Increased Redness, Foul Odor of Wound, Increased Drainage, Skin Itchy or Has a Rash, Increased Swelling, Temperature Above 101 F Operative Area Clean and Dry: Keep Incision Clean/Dry Stitches/Hildebran/Dermabond: Dermabond, Care of Stitches Bathing Instructions: CLAIRE Hills DO February 08, 2021 12:47
[2021-02-08] MEDS ORDERED: MIDAZOLAM 10 MG/2 ML (VERSED) VIAL ONE (13:08)
[2021-02-08] MEDS ORDERED: PHENYLEPHRINE 100 MCG/ML 10 ML (ANESTHESIA) SYR ONE (13:33)
[2021-02-08] MEDS ORDERED: BUPIVACAINE 0.5% 30 ML (SENSORCAINE) VIAL ONE (13:33)
[2021-02-08] MEDS ORDERED: CATHETER FLUSH 10 ML SYR IV SCH (14:00)
[2021-02-08] MEDS: HYDROcodone/APAP 5 MG/325 MG (LORTAB) TAB PO PRN ×2 (15:11→20:57)
[2021-02-08] MEDS: IBUPROFEN 600 MG (MOTRIN) TAB PO SCH ×2 (16:51→22:48)
[2021-02-08] MEDS: METOCLOPRAMIDE 10 MG (REGLAN) TAB PO SCH ×2 (16:51→22:48)
[2021-02-08] MEDS ORDERED: ACET325C7 PO (19:01)
[2021-02-08] MEDS: DOCUSATE SODIUM 100 MG (COLACE) CAP PO SCH (22:48)
[2021-02-09] VITALS: BP 135/69
--- NOTE | 2021-02-09 00:52 | OPERATIVE REPORT ---
DATE OF SERVICE: PREOPERATIVE DIAGNOSES: 1. A 40-year-old at 38 weeks gestation. 2. SROM 3. Previous section x2. 4. Limited care. 5. History of illicit drug use. POSTOPERATIVE DIAGNOSES: 1. A 40-year-old at 38 weeks gestation. 2. SROM 3. Previous section x2. 4. Limited care. 5. History of illicit drug use. PROCEDURE: Repeat low transverse section. SURGEON: Rosalio Omalley DO ANESTHESIA: Spinal. ESTIMATED BLOOD LOSS: 500 mL. URINE OUTPUT: 50 mL clear at the end of the procedure. FLUIDS: 1700 mL lactated Ringer's solution. FINDINGS: A live male weighing 8 pounds 4 ounces, Apgars of 6 and 8. Grossly normal appearing uterus, bilateral fallopian tubes and ovaries. SPECIMEN SENT: Placenta. INDICATIONS FOR PROCEDURE: This 40-year-old female is a patient who presented to the labor and delivery unit with ruptured membranes. Indications for proceeding with due to 38 weeks, ruptured membranes and previous . The patient had been previously counseled about risks of procedure including risk of bleeding, infection, damaging surrounding structures including, but not limited to bowel, bladder, ureter, kidneys, possible need for reoperation, risk from anesthesia, recovery timeframe and even . After everything was discussed with the patient in detail, consent was obtained in the preoperative area, the patient was taken to the operating room. OPERATIVE REPORT IN DETAIL: Once in the operating room, spinal analgesia was found to be adequate. She was placed in supine position with leftward tilt, prepped and draped in normal sterile fashion where a timeout was performed and anesthesia was tested. I then proceeded with making a Pfannenstiel skin incision with a knife through the previously existing scar and carried down to underlying fascia using Bovie cautery. The fascial incision was extended laterally using Bovie cautery. The superior aspect of fascial incision was then grasped with Aamir clamps, tented up and dissected off the underlying rectus muscles. The inferior aspect of fascial incision was then grasped with Aamir clamps, tented up and dissected off the underlying rectus muscles. Rectus muscles were dissected down the midline using Horn scissors, which exposed the peritoneum, which I entered bluntly and extended using blunt traction. An Federico ring retractor was placed in the peritoneal incision, which offers excellent lateral sidewall retraction. I then identified the lower uterine segment, which was found to be thinned out and make a low transverse incision to the vesicouterine peritoneum and bluntly dissected off the lower uterine segment. I then proceeded with my myotomy until membranes were visualized, at which point I extended the uterine incision laterally and superiorly using bandage scissors. Amniotomy was performed in the process of doing this. The infant was found in vertex presentation. With fundal pressure, the head was elevated up the incision were delivered through the incision. The nares and oropharynx were bulb suctioned. Anterior and posterior shoulders were delivered. Infant was then brought to the operative field with cord doubly clamped and cut and infant was handed off to waiting physician in attendance, Dr. Gillette. Cord blood was collected, 3-vessel cord with intact placenta was delivered spontaneously thereafter. IV Pitocin was initiated to facilitate uterine contraction. Uterine fundus confirmed by manual massage. Uterus was then exteriorized and cleared of all endometrial clots and debris. I then proceeded with closing the uterine incision using 0 Vicryl suture in running locked fashion. Second layer of imbricating 0 Monocryl was placed. Excellent hemostasis was noted after doing. I then placed the uterus back in the pelvis and copiously irrigated the pelvis using normal saline. Once again, there was no active bleeding noted from any of my dissection planes. I placed Interceed antiadhesive over my low transverse incision, removed the Federico ring retractor and then proceeded with closing the peritoneum and rectus muscles in one layer using 2-0 Vicryl suture in running fashion. The fascia was reapproximated using 0 Vicryl suture in running fashion. The subcutaneous tissue was reapproximated using 3-0 plain. The skin was reapproximated using forest. Sterile dressing with adhesive white tape. The patient tolerated the procedure well and sent to recovery area in stable condition. Lap and sponge counts were correct at the end of the procedure. Instrument counts correct as well. Two grams of Ancef given preoperatively for infection prophylaxis. Job ID: [id number] DocumentID: [id number] Dictated Date: 02/08/2021 13:35:17 Conflict Resolution Professional Date: 02/08/2021 18:17:04 Dictated By: DO FREDI DAMON
[2021-02-09] MEDS: HYDROcodone/APAP 5 MG/325 MG (LORTAB) TAB PO PRN ×4 (02:48→21:09)
[2021-02-09 03:00] VITALS: BP 130/62
[2021-02-09] MEDS: IBUPROFEN 600 MG (MOTRIN) TAB PO SCH ×3 (04:59→21:09)
[2021-02-09] MEDS: METOCLOPRAMIDE 10 MG (REGLAN) TAB PO SCH ×3 (04:59→21:09)
[2021-02-09 07:18] LABS: BASOPHILS % (AUTO) 0 % (0-10); EOSINOPHILS # (AUTO) 0.2 10^3/uL (0.0-0.3); EOSINOPHILS % (AUTO) 1 % (0-10); HEMATOCRIT 32 % (35-52); HEMOGLOBIN 10.6 g/dL (11.5-16.0); LYMPHOCYTES # (AUTO) 2.1 10^3/uL (1.0-4.0); LYMPHOCYTES % (AUTO) 14 % (12-44); MEAN CORPUSCULAR HEMOGLOBIN 29 pg (25-34); MEAN CORPUSCULAR HGB CONC 33 g/dL (32-36); MEAN CORPUSCULAR VOLUME 87 fL (80-99); MEAN PLATELET VOLUME 10.8 fL (9.0-12.2); MONOCYTES # (AUTO) 0.8 10^3/uL (0.0-1.0); MONOCYTES % (AUTO) 5 % (0-12); NEUTROPHILS # (AUTO) 11.8 10^3/uL (1.8-7.8); NEUTROPHILS % (AUTO) 79 % (42-75); PLATELET COUNT 252 10^3/uL (130-400)
[2021-02-09 07:20] VITALS: BP 134/62
[2021-02-09] MEDS: DOCUSATE SODIUM 100 MG (COLACE) CAP PO SCH ×2 (09:07→21:09)
--- NOTE | 2021-02-09 11:01 | Postpartum Progress Note ---
Note Note Day # 1 Subjective: Patient is without complaints. Ambulating, voiding. Tolerating a regular diet without nausea or vomiting. Normal lochia. Pain is well controlled with oral pain medications. Objective: Physical Exam: General - Alert and oriented, no apparent distress Abdomen - Soft, appropriately tender to palpation, non-distended, fundus firm at umbilicus Extremities - no edema, negative Jose Martin's bilaterally Incision- c/d/i forets in place Assessment: POD 1 RLTCS Acute blood loss anemia Plan: Routine care. Encourage breast feeding. Encourage ambulation. Ferrous sulfate supplementation. Plan for discharge tomorrow Vitals - Labs Vital Signs - I&O Vital Signs Date Time Temp Pulse Resp B/P (MAP) Pulse Ox O2 Delivery O2 Flow Rate FiO2 02/09/21 07:20 36.7 91 16 134/62 (86) 95 02/09/21 03:00 36.8 95 18 130/62 (84) 97 Room Air 02/09/21 00:00 36.9 99 18 135/69 (91) 99 Room Air 02/08/21 21:00 Room Air 02/08/21 20:00 36.8 94 18 122/69 (86) 97 Room Air 02/08/21 15:50 36.4 75 16 134/82 (99) 99 Room Air 02/08/21 15:02 Room Air 02/08/21 14:50 36.2 85 16 131/77 (95) 98 02/08/21 14:30 Room Air 02/08/21 14:20 36.5 20 127/73 (91) 98 Room Air 02/08/21 14:15 Room Air 02/08/21 14:10 22 122/67 (85) 98 Room Air 02/08/21 14:00 20 119/78 (92) 98 Room Air 02/08/21 14:00 Room Air 02/08/21 13:50 16 119/72 (88) 94 Room Air 02/08/21 13:45 Room Air 02/08/21 13:40 20 105/61 (76) 99 Room Air 02/08/21 13:37 20 99/65 (76) 98 Room Air 02/08/21 13:33 36.9 18 104/53 (70) 96 Room Air 02/08/21 13:33 Room Air 02/08/21 11:10 37.1 105 20 97 Room Air 02/08/21 11:10 37.1 105 16 129/79 (96) 97 Room Air I & O 02/09/21 07:00 Intake Total 1600 ml Output Total 90 ml Balance 1510 ml Labs Laboratory Tests 02/08/21 12:00: White Blood Count 11.8H, Red Blood Count 3.92, Hemoglobin 11.1L, Hematocrit 34L, Mean Corpuscular Volume 87, Mean Corpuscular Hemoglobin 28, Mean Corpuscular Hemoglobin Concent 33, Red Cell Distribution Width 14.1, Platelet Count 286, Mean Platelet Volume 11.1, Immature Granulocyte % (Auto) 1, Neutrophils (%) (Auto) 76H, Lymphocytes (%) (Auto) 15, Monocytes (%) (Auto) 7, Eosinophils (%) (Auto) 1, Basophils (%) (Auto) 0, Neutrophils # (Auto) 8.9H, Lymphocytes # (Auto) 1.8, Monocytes # (Auto) 0.8, Eosinophils # (Auto) 0.1, Basophils # (Auto) 0.0, Immature Granulocyte # (Auto) 0.1, Urine Opiates Screen NEGATIVE, Urine Oxycodone Screen NEGATIVE, Urine Methadone Screen NEGATIVE, Urine Propoxyphene Screen NEGATIVE, Urine Barbiturates Screen NEGATIVE, Ur Tricyclic Antidepressants Screen POSITIVEH, Urine Phencyclidine Screen NEGATIVE, Urine Amphetamines Screen NEGATIVE, Urine Methamphetamines Screen NEGATIVE, Urine Benzodiazepines Screen NEGATIVE, Urine Cocaine Screen NEGATIVE, Urine Cannabinoids Screen NEGATIVE 02/09/21 07:07: White Blood Count 15.0H, Red Blood Count 3.69L, Hemoglobin 10.6L, Hematocrit 32L , Mean Corpuscular Volume 87, Mean Corpuscular Hemoglobin 29, Mean Corpuscular Hemoglobin Concent 33, Red Cell Distribution Width 14.2, Platelet Count 252, Mean Platelet Volume 10.8, Immature Granulocyte % (Auto) 1, Neutrophils (%) (Auto) 79H, Lymphocytes (%) (Auto) 14, Monocytes (%) (Auto) 5, Eosinophils (%) (Auto) 1, Basophils (%) (Auto) 0, Neutrophils # (Auto) 11.8H, Lymphocytes # (Auto) 2.1, Monocytes # (Auto) 0.8, Eosinophils # (Auto) 0.2, Basophils # (Auto) 0.0, Immature Granulocyte # (Auto) 0.1 CLAIRE DESAI DO February 09, 2021 11:01
[2021-02-09] MEDS ORDERED: FUROSEMIDE 20 MG (LASIX) TAB PO ONE (12:00)
[2021-02-09] MEDS ORDERED: IBUPROFEN 600 MG (MOTRIN) TAB PO SCH (12:45)
[2021-02-09 13:50] VITALS: BP 126/65
[2021-02-09 21:00] VITALS: BP 134/77
[2021-02-10 02:15] VITALS: BP 141/76
[2021-02-10] MEDS: IBUPROFEN 600 MG (MOTRIN) TAB PO SCH ×3 (03:08→15:46)
[2021-02-10] MEDS: METOCLOPRAMIDE 10 MG (REGLAN) TAB PO SCH ×3 (03:08→15:45)
[2021-02-10] MEDS: HYDROcodone/APAP 5 MG/325 MG (LORTAB) TAB PO PRN ×3 (03:08→15:46)
[2021-02-10 08:30] VITALS: BP 149/73
[2021-02-10] MEDS: DOCUSATE SODIUM 100 MG (COLACE) CAP PO SCH (08:30)
--- NOTE | 2021-02-10 08:43 | Postpartum Progress Note ---
Note Note Day # 2 Subjective: Patient is without complaints. Ambulating, voiding. Tolerating a regular diet without nausea or vomiting. Normal lochia. Pain is well controlled with oral pain medications. Objective: Physical Exam: General - Alert and oriented, no apparent distress Abdomen - Soft, appropriately tender to palpation, non-distended, fundus firm at umbilicus Extremities - no edema, negative Jose Martin's bilaterally Incision- c/d/i Assessment: POD 2 RLTCS Acute blood loss anemia Plan: Routine care. Encourage breast feeding. Encourage ambulation. Ferrous sulfate supplementation. Plan for discharge today Vitals - Labs Vital Signs - I&O Vital Signs Date Time Temp Pulse Resp B/P (MAP) Pulse Ox O2 Delivery O2 Flow Rate FiO2 02/10/21 02:15 36.3 106 20 141/76 (97) 97 Room Air 02/09/21 21:00 36.3 104 20 134/77 (96) 96 Room Air 02/09/21 13:50 36.1 113 20 126/65 (85) 96 Room Air CLAIRE DESAI DO February 10, 2021 08:43
[2021-02-10] MEDS ORDERED: FUROSEMIDE 20 MG (LASIX) TAB PO ONE (09:00)
[2021-02-10 11:50] VITALS: BP 140/69
[2021-02-10 12:02] LABS: HEPATITIS C ANTIBODY C Non-Reactive (Non-Reactive)
--- NOTE | 2021-02-10 13:08 | Anesthesia-Regional Post-Op ---
Regional Patient Condition Mental Status: Alert, Oriented x3 Circulation: Same as Pre-Op Headache: Absent Sensation: Full Recovery Motor Block: Absent Post Op Complications Complications None Follow Up Care/Instructions Patient Instructions None needed. Anesthesia/Patient Condition Patient is doing well, no complaints, stable vital signs, no apparent adverse anesthesia problems. IDALIA BROWN DO February 10, 2021 13:08
[2021-02-10] MEDS ORDERED: IBUP-844 PO (13:39)
[2021-02-10] MEDS ORDERED: DCS100C PO (13:39)
[2021-02-10] MEDS ORDERED: ACHD5005 PO (13:39)
--- NOTE | 2021-02-11 07:02 | Anesthesia-Regional Post-Op ---
Regional Patient Condition Mental Status: Alert, Oriented x3 Circulation: Same as Pre-Op Headache: Absent Sensation: Full Recovery Motor Block: Absent Post Op Complications Complications None Follow Up Care/Instructions Patient Instructions None needed. Anesthesia/Patient Condition Patient is doing well, no complaints, stable vital signs, no apparent adverse anesthesia problems. No complications reported per nursing. ASHER MCCOY CRNA February 11, 2021 07:02
== END 2021-02-10 16:35 | disposition home or self-care (01) | DRG 787 ==
LOC: WSo 10:54 → LDRP 10:55 → WSo 12:14 → LDRP 12:15
PROVIDERS: ADMIT Obstetrics & Gynecology; ATTEND Obstetrics & Gynecology
PROC: 10D00Z1 Extraction of Products of Conception, Low, Open Approach (ICD-10-PCS; principal; 2021-02-08 12:38)
DX: O34.211 Maternal care for low transverse scar from previous cesarean delivery (principal); D62 Acute posthemorrhagic anemia; Z3A.38 38 weeks gestation of pregnancy; Z37.0 Single live birth; O90.81 Anemia of the puerperium
CPT/HCPCS: 36415; 80306; 85025; 86703; 86762; 86780; 86803; 86850; 86900; 86901; 87340; 94664; 99212

== ENCOUNTER 2023-02-27 09:11 | Emergency (ER) | payer MEDICARE, MEDICAID ==
[~2023-02-27] VITALS: Ht 160 cm; Wt 72.5 kg
[~2023-02-27 09:11] MED LIST changes: +ACET325C7 PO; +ACHD5005 PO; +CYCL10TA25 PO; -DCS100C PO; +DOCU-239 PO; -SULF1TAB35 PO; +SULF1TAB38 PO
[2023-02-27] MEDS ORDERED: NS IV 1000 ML 1,000 ML IV STA (09:40)
[2023-02-27] MEDS ORDERED: diphenhydrAMINE 50 MG/ML INJ (BENADRYL) IVP ONE (09:45)
[2023-02-27] MEDS ORDERED: PROMETHAZINE INJ 25 MG/ML (PHENERGAN) AMP IVP ONE (09:45)
[2023-02-27 09:50] LABS: BILIRUBIN,URINE NEGATIVE (NEGATIVE); CLARITY,URINE SL CLOUDY; COLOR,URINE YELLOW; GLUCOSE, URINE (UA) NEGATIVE (NEGATIVE); KETONES,URINE NEGATIVE (NEGATIVE); LEUKOCYTE ESTERASE ,URINE TRACE (NEGATIVE); NITRITE,URINE POSITIVE (NEGATIVE); PROTEIN,URINE 1+ (NEGATIVE)
[2023-02-27 10:00] LABS: BACTERIA,URINE LARGE /HPF; WBC,URINE 25-50 /HPF
[2023-02-27] MEDS ORDERED: cefTRIAXone IV/IM 1,000 MG in NS (IVPB) 50 ML IV ONE (10:30)
[2023-02-27] MEDS ORDERED: NS (IVPB) 50 ML ONE (11:00)
[2023-02-27 11:01] LABS: BASOPHILS # (AUTO) 0.1 10^3/uL (0.0-0.1); BASOPHILS % (AUTO) 0 % (0-10); EOSINOPHILS % (AUTO) 0 % (0-10); HEMATOCRIT 35 % (35-52); HEMOGLOBIN 12.2 g/dL (11.5-16.0); LYMPHOCYTES # (AUTO) 1.2 10^3/uL (1.0-4.0); LYMPHOCYTES % (AUTO) 7 % (12-44); MEAN CORPUSCULAR HEMOGLOBIN 32 pg (25-34); MEAN CORPUSCULAR HGB CONC 35 g/dL (32-36); MEAN CORPUSCULAR VOLUME 92 fL (80-99); MEAN PLATELET VOLUME 9.6 fL (9.0-12.2); MONOCYTES # (AUTO) 1.5 10^3/uL (0.0-1.0); MONOCYTES % (AUTO) 9 % (0-12); NEUTROPHILS # (AUTO) 15.2 10^3/uL (1.8-7.8); NEUTROPHILS % (AUTO) 84 % (42-75); PLATELET COUNT 258 10^3/uL (130-400); WHITE BLOOD COUNT 18.1 10^3/uL (4.3-11.0)
[2023-02-27 11:09] LABS: ALBUMIN 3.3 GM/DL (3.2-4.5); POTASSIUM 4.6 MMOL/L (3.6-5.0)
[2023-02-27 11:10] LABS: CALCIUM 8.6 MG/DL (8.5-10.1)
[2023-02-27 11:11] LABS: TOTAL PROTEIN 6.9 GM/DL (6.4-8.2)
[2023-02-27 11:13] LABS: BILIRUBIN,TOTAL 0.4 MG/DL (0.1-1.0)
[2023-02-27 11:15] LABS: CREATININE SERUM 0.8 MG/DL (0.60-1.30)
[2023-02-27 11:29] LABS: BAND NEUTROPHILS 4 %; BASOPHILS % (MANUAL) 0 %; EOSINOPHILS % (MANUAL) 0 %; LYMPHOCYTES % (MANUAL) 4 %; MONOCYTES % (MANUAL) 8 %; NEUTROPHILS % (MANUAL) 84 %; RBC MORPH NORMAL
--- NOTE | 2023-02-27 11:41 | ED General ---
General Chief Complaint: Abdominal/GI Problems Stated Complaint: FEVER - BACK PAIN - ABD PAIN Nursing Triage Note: PT AMB TO RM 6 WITH COMPLAINT OF BODY ACHES, FEVER, ABD PAIN, BACK PAIN FOR 3 DAYS. Source of Information: Patient History of Present Illness Date Seen by Provider: February 27, 2023 Time Seen by Provider: 09:30 Initial Comments Patient is a 42-year-old female who presents to the emergency room with a chief complaint of subjective fever, body aches all over, abdominal pain and back pain. Patient states onset of symptoms 3 days ago. She states she uses methamphetamine, last use was 3 days ago. She denies chest pain or shortness of breath. She states that she was told she had bacteria in her urine about a month ago but her father got sick so she gave him her antibiotics. She states she is having a little burning with urination. No abnormal vaginal discharge. Her last menstrual cycle also ended 3 days ago. She is sexually active without any control. She has had prior as her only abdominal surgery. She has taken Tylenol for the pain without any relief of symptoms. No vomiting. Timing/Duration: 2-3 Days Severity: Severe Associated Systoms: Fever/Chills, Malaise Allergies and Home Medications Allergies Coded Allergies: aripiprazole (Verified Allergy, Severe, ANAPHYLAXIS, 11/08/19) ketorolac (Verified Allergy, Severe, TONGUE SWELLING, pt has received Ibuprofen, 11/15/19) latex (Verified Allergy, Mild, RASH, 11/08/19) Patient Home Medication List Home Medication List Reviewed: Yes Cyclobenzaprine HCl (Cyclobenzaprine HCl) 10 Mg Tablet, 10 MG PO BID PRN for MUSCLE SPASMS, (Reported) Entered as Reported by: REBEKAH TEE on 02/04/21 1555 Docusate Sodium (Dok) 100 Mg Capsule, 100 MG PO BID PRN for CONSTIPATION-1ST LINE Prescribed by: CLAIRE DESAI on 02/10/21 1339 Hydrocodone Bit/Acetaminophen (HYDROcodone/APAP 5 MG/325 MG TAB) 1 Tab Tab, 1-2 EA PO Q6HR PRN for PAIN-MODERATE (5-7) Prescribed by: CLAIRE DESAI on 02/10/21 1339 Ibuprofen (Ibu) 600 Mg Tablet, 600 MG PO Q6HR Prescribed by: CLAIRE DESAI on 02/10/21 1339 Vit/Iron Fumarate/FA ( Tablet) 1 Each Tablet, 1 EACH PO DAILY, (Reported) Entered as Reported by: ANJALI ORONA on 01/28/21 1220 Review of Systems Review of Systems Constitutional: see HPI, fever, malaise EENTM: no symptoms reported Respiratory: no symptoms reported Cardiovascular: no symptoms reported Gastrointestinal: abdominal pain Genitourinary: dysuria : No LMP: February 21, 2023 Musculoskeletal: back pain Skin: no symptoms reported Psychiatric/Neurological: No Symptoms Reported Past Yuhwnmu-Dzzvcy-Wqcvja Hx Patient Social History Tobacco Use?: Yes Tobacco type used: Cigarettes Smoking Status: Current Everyday Smoker Use of E-Cig and/or Vaping dev: No Substance use?: Yes Substance type: Methamphetamine Alcohol Use?: Yes Alcohol Frequency: Once in a while Pt feels they are or have been: No Immunizations Up To Date Tetanus Booster (TDap): Unknown First/Initial COVID19 Vaccinat: none Second COVID19 Vaccination Alfonso: none Third COVID19 Vaccination Date: none Seasonal Allergies Seasonal Allergies: Yes Past Medical History Surgeries: Yes (URETHRAL DILATION X 2; X 2, NECK SURGERY) Adenoidectomy, Bladder Surgery, Section, Tonsillectomy Respiratory: Yes Asthma Currently Using CPAP: No Currently Using BIPAP: No Cardiac: No Hypertension Neurological: No Headaches /Migraines 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 Disorders: No Female 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 Sexually Transmitted Disease: Yes (GENITAL HERPES) HIV/AIDS: No Genitourinary: Yes Bladder Infection Gastrointestinal: Yes Gastroesophageal Reflux Musculoskeletal: Yes (CHRONIC NECK PAIN ) Degenerate Disk Disease, Chronic Back Pain Endocrine: No HEENT: No Loss of Vision: Denies Hearing Impairment: Denies Cancer: No Psychosocial: Yes (SUBSTANCE ABUSE) Anxiety, Bipolar, Schizophrenia, Depression Integumentary: No Blood Disorders: No Adverse Reaction/Blood Tranf: No (N/A) Family Medical History Asthma 19 FATHER FH: COPD (chronic obstructive pulmonary disease) 19 FATHER FH: bladder cancer 19 FATHER FH: emphysema 19 FATHER Psychosocial problem 19 FATHER 19 MOTHER G8 BROTHER G8 SISTER No Pertinent Family Hx SOCIAL HISTORY: -ETOH--OCCASIONAL USE -DRUGS--+ IV METH USE, ALSO UDS + FOR BENZODIAZEPINES, THC -SMOKES 1 PPD Physical Exam Vital Signs Vital Signs - First Documented 02/27/23 09:29 Temp 37.3 Pulse 130 Resp 22 B/P (MAP) 118/66 (83) Pulse Ox 99 O2 Delivery Room Air Capillary Refill : Less Than 3 Seconds Height, Weight, BMI Height: 5'2.00" Weight: 160lbs. oz. 72.631143wo; 28.00 BMI Method:Stated General Appearance: WD/WN, Anxious, Mild Distress Eyes: Bilateral Eye Normal Inspection HEENT: PERRL/EOMI Neck: Normal Inspection Respiratory: Lungs Clear, Normal Breath Sounds, No Accessory Muscle Use, No Respiratory Distress Cardiovascular: Regular Rate, Rhythm Gastrointestinal: Normal Bowel Sounds, Soft Back: CVA Tenderness (L), CVA Tenderness (R) Extremity: Normal Inspection, Normal Range of Motion, Non Tender, No Calf Tenderness Neurologic/Psychiatric: Alert, Oriented x3, No Motor/Sensory Deficits, Normal Mood/Affect, clinical dermatologist II-XII Norm as Tested Skin: Normal Color, Warm/Dry Progress/Results/Core Measures Suspected Sepsis SIRS Temperature: Pulse: 130 Respiratory Rate: 22 Laboratory Tests 02/27/23 10:50: White Blood Count 18.1H Blood Pressure 118 /66 Mean: 83 Laboratory Tests 02/27/23 10:50: Creatinine 0.80, Platelet Count 258, Total Bilirubin 0.4 Results/Orders Lab Results Laboratory Tests Test 02/27/23 09:40 02/27/23 09:44 02/27/23 10:50 Range/Units Influenza Type A (RT-PCR) Not Detected Not Detecte Influenza Type B (RT-PCR) Not Detected Not Detecte SARS-CoV-2 RNA (RT-PCR) Not Detected Not Detecte Urine Color YELLOW Urine Clarity SL CLOUDY Urine pH 6.0 5-9 Urine Specific Seymour 1.015 L 1.016-1.022 Urine Protein 1+ H NEGATIVE Urine Glucose (UA) NEGATIVE NEGATIVE Urine Ketones NEGATIVE NEGATIVE Urine Nitrite POSITIVE H NEGATIVE Urine Bilirubin NEGATIVE NEGATIVE Urine Urobilinogen 0.2 < = 1.0 MG/DL Urine Leukocyte Esterase TRACE H NEGATIVE Urine RBC (Auto) 3+ H NEGATIVE Urine RBC 10-25 H /HPF Urine WBC 25-50 H /HPF Urine Squamous Epithelial Cells 2-5 /HPF Urine Crystals NONE /LPF Urine Bacteria LARGE H /HPF Urine Casts NONE /LPF Urine Mucus NEGATIVE /LPF Urine Culture Indicated YES White Blood Count 18.1 H 4.3-11.0 10^3/uL Red Blood Count 3.87 3.80-5.11 10^6/uL Hemoglobin 12.2 11.5-16.0 g/dL Hematocrit 35 35-52 % Mean Corpuscular Volume 92 80-99 fL Mean Corpuscular Hemoglobin 32 25-34 pg Mean Corpuscular Hemoglobin Concent 35 32-36 g/dL Red Cell Distribution Width 13.2 10.0-14.5 % Platelet Count 258 130-400 10^3/uL Mean Platelet Volume 9.6 9.0-12.2 fL Immature Granulocyte % (Auto) 1 % Neutrophils (%) (Auto) 84 H 42-75 % Lymphocytes (%) (Auto) 7 L 12-44 % Monocytes (%) (Auto) 9 0-12 % Eosinophils (%) (Auto) 0 0-10 % Basophils (%) (Auto) 0 0-10 % Neutrophils # (Auto) 15.2 H 1.8-7.8 10^3/uL Lymphocytes # (Auto) 1.2 1.0-4.0 10^3/uL Monocytes # (Auto) 1.5 H 0.0-1.0 10^3/uL Eosinophils # (Auto) 0.0 0.0-0.3 10^3/uL Basophils # (Auto) 0.1 0.0-0.1 10^3/uL Immature Granulocyte # (Auto) 0.1 0.0-0.1 10^3/uL Neutrophils % (Manual) 84 % Lymphocytes % (Manual) 4 % Monocytes % (Manual) 8 % Eosinophils % (Manual) 0 % Basophils % (Manual) 0 % Band Neutrophils 4 % Blood Morphology Comment NORMAL Sodium Level 132 L 135-145 MMOL/L Potassium Level 4.6 3.6-5.0 MMOL/L Chloride Level 102 98-107 MMOL/L Carbon Dioxide Level 20 L 21-32 MMOL/L Anion Gap 10 5-14 MMOL/L Blood Urea Nitrogen 6 L 7-18 MG/DL Creatinine 0.80 0.60-1.30 MG/DL Estimat Glomerular Filtration Rate 95 BUN/Creatinine Ratio 8 Glucose Level 100 70-105 MG/DL Calcium Level 8.6 8.5-10.1 MG/DL Corrected Calcium 9.2 8.5-10.1 MG/DL Total Bilirubin 0.4 0.1-1.0 MG/DL Aspartate Amino Transf (AST/SGOT) 71 H 5-34 U/L Alanine Aminotransferase (ALT/SGPT) 88 H 0-55 U/L Alkaline Phosphatase 93 40-136 U/L Total Protein 6.9 6.4-8.2 GM/DL Albumin 3.3 3.2-4.5 GM/DL My Orders Orders - SEJAL SOUTH MD Ed Iv/Invasive Line Start (02/27/23 09:40) Cbc With Automated Diff (02/27/23 09:40) Comprehensive Metabolic Panel (02/27/23 09:40) Urinalysis (02/27/23 09:40) Urine Bedside (02/27/23 09:40) Covid 19 Inhouse Test (02/27/23 09:40) Influenza A And B By Pcr (02/27/23 09:40) Isolation Central Supply Req (02/27/23 09:40) Ns Iv 1000 Ml (Sodium Chloride 0.9%) (02/27/23 09:40) Promethazine Injection (Phenergan Injec (02/27/23 09:45) Diphenhydramine Injection (Benadryl Inje (02/27/23 09:45) Urine Culture (02/27/23 09:44) Ceftriaxone Iv/Im (Rocephin Iv/Im) (02/27/23 10:30) Ns (Ivpb) (Sodium Chloride 0.9% Ivpb Bag (02/27/23 11:00) Manual Differential (02/27/23 10:50) Medications Given in ED Current Medications Medications Dose Ordered Sig/Myron Route Start Time Stop Time Status Last Admin Dose Admin Ceftriaxone Sodium 1000 mg/ Sodium Chloride 50 ml @ 100 mls/hr ONCE ONCE IV 02/27/23 10:30 02/27/23 10:59 DC 02/27/23 11:05 100 MLS/HR Diphenhydramine HCl 25 mg ONCE ONCE IVP 02/27/23 09:45 02/27/23 09:46 DC 02/27/23 10:44 25 MG Promethazine HCl 25 mg ONCE ONCE IVP 02/27/23 09:45 02/27/23 09:46 DC 02/27/23 10:44 25 MG Vital Signs/I&O 02/27/23 09:29 Temp 37.3 Pulse 130 Resp 22 B/P (MAP) 118/66 (83) Pulse Ox 99 O2 Delivery Room Air Capillary Refill : Less Than 3 Seconds Blood Pressure Mean: 83 Progress Note : Time: 11:38 Progress Note Patient seen and evaluated by me. Evaluation today includes physical exam, CBC, chemistry, urinalysis, urine test. Pertinent physical exam findings well-developed well-nourished female in moderate distress due to abdominal pain and malaise. She is awake alert oriented, little belligerent, verbally aggressive. Heart is regular, lungs are clear. Oral temp 99.1. Patient was poorly compliant with keeping her mouth shut while the temp probe was in her mouth. Abdomen is soft mildly tender especially along the right flank. She has bilateral CVA tenderness. No lower extremity edema. Differential diagnosis based on history and physical, viral syndrome/COVID, urinary tract infection/pyelonephritis. Labs reviewed and interpreted by me. CBC shows a white blood cell count of 18.1 with 84% segs, normal hemoglobin, hematocrit and platelets. Chemistry shows a sodium of 132 potassium of 4.6. Her AST and ALT are little bit elevated at 71 and 88. Urine is grossly infected with a specific gravity of 1.015, 1+ protein, trace LE, 10-25 red blood cells, 25-50 white blood cells and large bacteria. Patient is treated in the emergency room with IV fluids, normal saline x1 L, 25 of Phenergan and 25 mg of IV Benadryl. She is also given 1 g of Rocephin to treat the urine infection. Suspect a sending urinary tract infection at this point. Patient will be sent home with a prescription for antibiotics for the next 10 days. She will be given nausea medications. Advised to take naproxen. Return precautions provided. Departure Impression Primary Impression: Pyelonephritis Disposition: 01 HOME, SELF-CARE Condition: Improved Departure-Patient Inst. Decision time for Depature: 11:43 Referrals: [facility]/CLAIRE MURDOCK DO (PCP/Family) Primary Care Physician Patient Instructions: Kidney Infection (DC) Add. Discharge Instructions: Drink plenty fluids to stay well-hydrated. Please take the antibiotics as directed and finish the entire course. Nausea medications as needed every 8 hours. You can take [id number] generic Aleve/naproxen 2 pills twice a day with food as needed for pain. If you develop high fever, persistent vomiting or any other emergent, concerning symptoms please return to the emergency department for reevaluation. Scripts Ondansetron (Ondansetron Odt) 4 Mg Tab.rapdis 4 MG PO Q8H PRN for NAUSEA/VOMITING, #12 TAB 0 Refills Prov: SEJAL SOUTH MD 02/27/23 Sulfamethoxazole/Trimethoprim (Bactrim Ds Tablet) 1 Each Tablet 1 EACH PO BID for 10 Days, #20 TAB Prov: SEJAL SOUTH MD 02/27/23 Copy Copies To 1: [facility] [place] Copies To 2: ALEXANDER LOPEZ KATHRYN M MD February 27, 2023 11:41
[2023-02-27] MEDS ORDERED: SULF1TAB38 PO (11:45)
[2023-02-27] MEDS ORDERED: ONDA4TAB11 PO (11:46)
[2023-02-27] MEDS ORDERED: NAPROXEN 250 MG (NAPROSYN) TABLET PO ONE (12:00)
[2023-02-27 12:11] VITALS: BP 115/72
== END 2023-02-27 12:11 | disposition home or self-care (01) ==
LOC: ER 09:11 → EDUNIT# 09:11 → ER 12:11
DX: N12 Tubulo-interstitial nephritis, not specified as acute or chronic (principal); R74.01 Elevation of levels of liver transaminase levels; F17.210 Nicotine dependence, cigarettes, uncomplicated; Z91.040 Latex allergy status; Z20.822 Contact with and (suspected) exposure to COVID-19; Z28.310 Unvaccinated for COVID-19
CPT/HCPCS: 36415; 80053; 81000; 84703; 85007; 85027; 87077; 87088; 87186; 87636